=== PATIENT | male | born 1935 | race Caucasian/White ===

== ENCOUNTER 2018-02-09 16:15 | Inpatient (IN) | payer MEDICARE ==
[2018-02-09 16:29] LABS: INTERNATIONAL RATION (INR) 1.02; PROTHROMBIN TIME 13.9 SEC (11.4-15.4)
[2018-02-09 16:30] LABS: PARTIAL THROMBOPLASTIN TIME 30.8 SEC (23.5-35.8)
[2018-02-09 16:32] LABS: ABSOLUTE BASOPHILS # (AUTO) 0.1 10^3/uL (0.0-0.2); ABSOLUTE EOSINOPHILS # (AUTO) 0.3 10^3/uL (0.0-0.6); ABSOLUTE LYMPHOCYTES (AUTO) 2.6 10^3/uL (0.5-4.7); ABSOLUTE MONOCYTES (AUTO) 0.7 10^3/uL (0.1-1.4); ABSOLUTE NEUT (AUTO) 3.1 10^3/uL (1.7-8.2); BASOPHILS % (AUTO) 0.9 % (0-2); HEMATOCRIT 39.4 % (37.9-51.0); HEMOGLOBIN 13.2 g/dL (13.5-17.0); LYMPHOCYTES % (AUTO) 37.9 % (13-45); MEAN CORPUSCULAR HEMOGLOBIN 31.9 pg (27.0-33.4); MEAN CORPUSCULAR HGB CONC 33.5 g/dL (32.0-36.0); MEAN CORPUSCULAR VOLUME 95 fl (80-97); MONOCYTES % (AUTO) 11.1 % (3-13); PLATELET COUNT 233 10^3/uL (150-450); RED BLOOD COUNT 4.14 10^6/uL (4.35-5.55); RED CELL DISTRIBUTION WIDTH 14.5 % (11.5-14.0); SEGMENTED NEUTROPHILS % (AUTO) 46.1 % (42-78); TOTAL CELLS COUNTED % (AUTO) 100 %; WHITE BLOOD COUNT 6.7 10^3/uL (4.0-10.5)
--- NOTE | 2018-02-09 16:40 | RADIOLOGY REPORT (SQ) ---
EXAM DESCRIPTION: CHEST SINGLE VIEW COMPLETED DATE/TIME: 02/09/2018 4:25 pm REASON FOR STUDY: bed 19 stroke alert COMPARISON: None. EXAM PARAMETERS: NUMBER OF VIEWS: One view. TECHNIQUE: Single frontal radiographic view of the chest acquired. RADIATION DOSE: NA LIMITATIONS: None. FINDINGS: LUNGS AND PLEURA: No opacities, masses or pneumothorax. No pleural effusion. MEDIASTINUM AND HILAR STRUCTURES: No masses. Contour normal. HEART AND VASCULAR STRUCTURES: Heart normal in size. Normal vasculature. BONES: No acute findings. HARDWARE: None in the chest. OTHER: No other significant finding. IMPRESSION: NO ACUTE RADIOGRAPHIC FINDING IN THE CHEST. TECHNICAL DOCUMENTATION: JOB ID: [id number] [employer]- All Rights Reserved Reading location - IP/workstation name: [email or web address]
--- NOTE | 2018-02-09 16:41 | RADIOLOGY REPORT (SQ) ---
EXAM DESCRIPTION: CT HEAD WITHOUT COMPLETED DATE/TIME: 02/09/2018 4:25 pm REASON FOR STUDY: bed 19 stroke alert COMPARISON: None. TECHNIQUE: Axial images acquired through the brain without intravenous contrast. Images reviewed wi th bone, brain and subdural windows. Additional sagittal and coronal reconstructions were generated. Images stored on PACS. All CT scanners at this facility use dose modulation, iterative reconstruction, and/or weight based d osing when appropriate to reduce radiation dose to as low as reasonably achievable (ALARA). [facility]: Dose Right [facility]: CareDose [facility]: Dose Right [facility]: Teradose 4D [facility]: [employer] RADIATION DOSE: mGy. LIMITATIONS: None. FINDINGS: VENTRICLES: Prominent. CEREBRUM: No masses. No hemorrhage. No midline shift. Areas of low density in the white matter mos t likely due to chronic micro-vascular ischemic change. No evidence for acute infarction. CEREBELLUM: No masses. No hemorrhage. No alteration of density. No evidence for acute infarction. EXTRAAXIAL SPACES: Age-related involutional change. No fluid collections. No masses. ORBITS AND GLOBE: No intra- or extraconal masses. Normal contour of globe without masses. CALVARIUM: No fracture. PARANASAL SINUSES: No fluid or mucosal thickening. SOFT TISSUES: No mass or hematoma. OTHER: No other significant finding. IMPRESSION: CHRONIC CHANGES OF ATROPHY AND MICROVASCULAR ISCHEMIA. NO ACUTE PROCESS. EVIDENCE OF ACUTE STROKE: NO. COMMENT: Pertinent positive or negative findings of the imaging study reported as a CRITICAL EXAM t o ER PROVIDER at16:35 on 02/09/2018. Category of Critical Exam: Stroke protocol. TECHNICAL DOCUMENTATION: JOB ID: [id number] Quality ID # [id number]: Final reports with documentation of one or more dose reduction techniques (e.g., Au tomated exposure control, adjustment of the mA and/or kV according to patient size, use of iterative reconstruction technique) 2010 [employer]- All Rights Reserved Reading location - IP/workstation name: [email or web address]
[2018-02-09 16:48] LABS: ALANINE AMINOTRANSFERASE 20 U/L (21-72); ALBUMIN 4.4 g/dL (3.5-5.0); ALKALINE PHOSPHATASE 87 U/L (38-126); ANION GAP 10 (5-19); ASPARTATE AMINO TRANSFERASE 43 U/L (17-59); BILIRUBIN,DIRECT 0.6 mg/dL (0.0-0.4); BILIRUBIN,TOTAL 0.8 mg/dL (0.2-1.3); BLOOD UREA NITROGEN 27 mg/dL (7-20); CALCIUM 9.9 mg/dL (8.4-10.2); CARBON DIOXIDE 25 mmol/L (22-30); CHLORIDE 111 mmol/L (98-107); CREATINE KINASE 162 U/L (55-170); GLUCOSE 122 mg/dL (75-110); SODIUM 145.5 mmol/L (137-145); TOTAL PROTEIN 7.8 g/dL (6.3-8.2)
--- NOTE | 2018-02-09 16:54 | ER Document Report ---
ED Neuro Symptoms/Deficit - General Chief Complaint: S/S of Possible Stroke Stated Complaint: POSSIBLE STROKE Time Seen by Provider: 02/09/18 16:29 Mode of Arrival: Stretcher Information source: Relative Cannot obtain history due to: Dementia Notes: Patient son called 911 because at 3:00 he noticed the right facial droop. However on arrival to the ED via EMS, the facial droop has resolved according to the son. Patient is currently at his baseline. Patient's son and his said that patient is currently at his baseline. Patient has history of dementia which is advanced and he does not communicate. Patient is nonverbal and does not follow commands. - HPI Patient complains to provider of: Facial Droop Onset: Just prior to arrival Awoke with symptoms: No Duration: Gone now Quality of pain: No pain Severity: None Loss of consciousness: No loss of consciousness Was STROKE ALERT Called: Yes Baseline Cognitive: Alert but disoriented Baseline Gait: Unable to walk Alert To: Name/Voice Impaired speech/swallowing: Unable Vision problem/glaucoma: No Associated symptoms: None Recently seen / treated by doctor: No - Related Data Allergies/Adverse Reactions: carbamazepine [From Tegretol] Allergy (Verified 02/09/18 18:27) hydromorphone [From Dilaudid] Allergy (Verified 02/09/18 18:27) phenytoin [From Dilantin] Allergy (Verified 02/09/18 18:27) Past Medical History - Social History Smoking Status: Unknown if Ever Smoked Family History: Hypertension Review of Systems - Review of Systems -: Yes ROS unobtainable due to patient's medical condition - Patient is non verbal and does not follow commands. Physical Exam - Vital signs Vitals: Pulse Resp BP Pulse Ox 78 20 130/84 H 97 02/09/18 16:20 02/09/18 16:20 02/09/18 16:20 02/09/18 16:20 Interpretation: Normal - General General appearance: Appears well, Alert In distress: None - HEENT Head: Normocephalic, Atraumatic Eyes: Normal Pupils: PERRL - Respiratory Respiratory status: No respiratory distress Chest status: Nontender Breath sounds: Normal Chest palpation: Normal - Cardiovascular Rhythm: Regular Heart sounds: Normal auscultation Murmur: No - Abdominal Inspection: Normal Distension: No distension Bowel sounds: Normal Tenderness: Nontender Organomegaly: No organomegaly - Back Back: Normal, Nontender - Extremities General upper extremity: Normal inspection, Nontender, Normal color, Normal ROM , Normal temperature General lower extremity: Normal inspection, Nontender, Normal color, Normal ROM , Normal temperature, Normal weight bearing. No: Mechelle's sign - Neurological Neuro grossly intact: Yes Cognition: Inattentive Orientation: Disoriented to events [place] Coma Scale Eye Opening: Spontaneous [place] Coma Scale Verbal: None Cecilia Coma Scale Motor: Localizes to Pain Cecilia Coma Scale Total: 10 Motor strength normal: LUE, RUE, LLE, RLE Notes: Unable to obtain the NIHSS because patient is nonverbal and does not follow commands. Patient's and son said that he is at his baseline currently. - Psychological Associated symptoms: Normal mood, Flat affect - Skin Skin Temperature: Warm Skin Moisture: Dry Skin Color: Normal Skin Turgor: Loose Course - Re-evaluation Re-evalutation: 02/09/18 18:24 I consulted the hospitalist on-call Dr. Reynolds. Patient will be admitted to the hospital by Dr. Garcia for further evaluation and management. - Vital Signs Vital signs: Temp Pulse Resp BP Pulse Ox 78 20 121/78 99 02/09/18 16:20 02/09/18 20:00 02/09/18 17:02 02/09/18 20:36 - Laboratory Result Diagrams: 02/09/18 15:45 02/09/18 15:45 Laboratory results interpreted by me: 02/09/18 02/09/18 15:45 15:45 RBC 4.14 L Hgb 13.2 L RDW 14.5 H Sodium 145.5 H Chloride 111 H BUN 27 H Creatinine 1.54 H Est GFR ( Amer) 52 L Est GFR (Non-Af Amer) 43 L Glucose 122 H Direct Bilirubin 0.6 H ALT 20 L - Diagnostic Test Radiology reviewed: Image reviewed, Reports reviewed - EKG Interpretation by Me EKG shows normal: Sinus rhythm Rate: Normal - 66 Rhythm: NSR Ventress/QRS: LAHB/LAFB When compared to previous EKG there are: Previous EKG unavailable Additional EKG results interpreted by me: 02/09/18 18:19 No STEMI. - Transfer of Care Notes: 02/09/18 18:28 Transient ischemic attack. Discharge - Discharge Clinical Impression: TIA (transient ischemic attack) Condition: Stable Disposition: ADMITTED INPATIENT Admitting Provider: Grey Ortega Unit Admitted: [facility]
[2018-02-09 17:02] LABS: CREATINE KINASE MB 2.35 ng/mL (<4.55)
[2018-02-09 17:04] LABS: TROPONIN I < 0.012 ng/mL
[2018-02-09] MEDS ORDERED: DEXTROSE 5%-1/2 NORMAL SALINE 1,000 ML IV PRN (18:19)
--- NOTE | 2018-02-09 18:54 | PDOC H&P ---
History of Present Illness Admission Date/PCP: 02/09/18 17:38 PIETRO MAYNARD MD Patient complains of: Left facial droop History of Present Illness: KEN SHARIF is a 82 year old maleWith advanced dementia nonverbal. Lives with his . Children witnessed patient have a left facial droop which resolved by the time he reached the emergency room. The patient is unable to provide any history. The states that he currently in his bedridden state is at his baseline although he is does tend to lay with his tongue to the left. It is unclear whether he actually had a neurologic event at this time. indicates that for the past week he has had periods where sitting in the chair he has tonic-clonic activity of both upper and lower extremities because he is chronically incontinent it is unclear whether these are true seizures. She is a poor historian and he is unable to give any history at all. Past Medical History Cardiac Medical History: Reports: Hyperlipidema, Hypertension Neurological Medical History: Reports: Other - Advanced dementia Endocrine Medical History: Reports: Hypothyroidism Past Surgical History Past Surgical History: Reports: Orthopedic Surgery Social History Smoking Status: Never Smoker Drugs: None Hx Prescription Drug Abuse: No Family History Parental Family History Reviewed: Yes - Patient unable to answer Children Family History Reviewed: Unknown Sibling(s) Family History Reviewed.: Unknown Medication/Allergy Allergies/Adverse Reactions: carbamazepine [From Tegretol] Allergy (Verified 02/09/18 18:27) hydromorphone [From Dilaudid] Allergy (Verified 02/09/18 18:27) phenytoin [From Dilantin] Allergy (Verified 02/09/18 18:27) Review of Systems ROS unobtainable: Due to mental status Physical Exam Vital Signs: Temp Pulse Resp BP Pulse Ox 78 19 121/78 98 02/09/18 16:20 02/09/18 17:02 02/09/18 17:02 02/09/18 17:02 General appearance: PRESENT: no acute distress, thin, well-developed Eye exam: PRESENT: conjunctiva pink, EOMI, PERRLA Neck exam: PRESENT: carotid bruit, full ROM, JVD, lymphadenopathy, meningismus, tenderness, thyromegaly, tracheal deviation, tracheostomy, other Respiratory exam: PRESENT: clear to auscultation osmar. ABSENT: rales, rhonchi, wheezes Cardiovascular exam: PRESENT: RRR. ABSENT: diastolic murmur, rubs, systolic murmur GI/Abdominal exam: PRESENT: normal bowel sounds, soft. ABSENT: distended, guarding, mass, organolmegaly, rebound, tenderness Musculoskeletal exam: ABSENT: ambulatory, full ROM Neurological exam: PRESENT: awake, CN II-XII grossly intact, aphasic. ABSENT: oriented to person, oriented to place, oriented to time, oriented to situation Psychiatric exam: PRESENT: other - Advanced dementia Skin exam: PRESENT: dry, intact, warm. ABSENT: cyanosis, rash Results Impressions: Chest X-Ray 02/09/18 16:19 IMPRESSION: NO ACUTE RADIOGRAPHIC FINDING IN THE CHEST. Head CT 02/09/18 16:19 IMPRESSION: CHRONIC CHANGES OF ATROPHY AND MICROVASCULAR ISCHEMIA. NO ACUTE PROCESS. EVIDENCE OF ACUTE STROKE: NO. Assessment & Plan - Diagnosis (1) TIA (transient ischemic attack) Is this a current diagnosis for this admission?: Yes Plan: Admit to the medical bed will not place telemetry as patient will only pick at it as he is doing in the emergency room. His advanced dementia and CT that confirms microvascular disease most likely patient had a TIA due to small vessel disease. Will initiate aspirin therapy. Obtain carotid Doppler echocardiogram. Discussed with CODE STATUS patient is a full code at present she will discuss with her children his CODE STATUS in light of his advanced dementia. (2) Seizure disorder Is this a current diagnosis for this admission?: Yes Plan: states that he has no history of seizure disorder yet Dilantin is listed as a allergy. Her description of bilateral convulsive activity while sitting in a chair that lasts approximately a minute certainly is consistent with seizure disorder. Will obtain MRI (3) Hypothyroid Is this a current diagnosis for this admission?: Yes Plan: Resume levothyroxine 1 dose confirmed (4) Hypertension Is this a current diagnosis for this admission?: Yes Plan: Resume outpatient meds when med rec confirmed - Time Time Spent: 50 to 70 Minutes Anticipated discharge: Home Within: within 48 hours - Inpatient Certification Based on my medical assessment, after consideration of the patient's comorbidities, presenting symptoms, or acuity I expect that the services needed warrant INPATIENT care.: Yes I certify that my determination is in accordance with my understanding of Medicare's requirements for reasonable and necessary INPATIENT services [42 CFR 412.3e].: Yes Medical Necessity: Need for Neurological Checks Post Hospital Care: D/C School Operations Manager Documentation
[2018-02-10 05:35] LABS: ALANINE AMINOTRANSFERASE 26 U/L (21-72); ALBUMIN 3.5 g/dL (3.5-5.0); ALKALINE PHOSPHATASE 86 U/L (38-126); ANION GAP 5 (5-19); ASPARTATE AMINO TRANSFERASE 22 U/L (17-59); BILIRUBIN,DIRECT 0.4 mg/dL (0.0-0.4); BILIRUBIN,TOTAL 0.8 mg/dL (0.2-1.3); BLOOD UREA NITROGEN 24 mg/dL (7-20); CALCIUM 9.4 mg/dL (8.4-10.2); CARBON DIOXIDE 27 mmol/L (22-30); CHLORIDE 114 mmol/L (98-107); CHOLESTEROL 124.44 mg/dL (0-200); GLUCOSE 100 mg/dL (75-110); SODIUM 146.1 mmol/L (137-145); TOTAL PROTEIN 6.3 g/dL (6.3-8.2); TRIGLYCERIDES 66 mg/dL (<150)
[2018-02-10 05:47] LABS: DIRECT LDL 60 mg/dL (<100)
[2018-02-10] MEDS ORDERED: GLUCAGON,HUMAN RECOMB 1 MG INJ SUBCUT PRN (07:46)
[2018-02-10] MEDS ORDERED: DEXTROSE 50%-WATER 25 GM/50 ML DISP.SYRIN IV PRN ×2 (07:46)
[2018-02-10] MEDS ORDERED: DEXTROSE 40% GEL 15 GM TUBE PO PRN ×2 (07:46)
--- NOTE | 2018-02-10 11:02 | PDOC PROGRESS REPORT ---
Subjective Progress Note for:: 02/10/18 Subjective:: 82-year-old white male with severe advanced dementia brought in by family members due to demonstrating a Right facial droop and unresponsive behavior. Family thought he had a stroke but his symptoms resolved by the time he arrived at the hospital. On talking with the patient has had these episodes of tonic-clonic activity while sitting in a chair and laying in bed. As he is demented his always incontinent he has not exhibited any tongue biting. This morning patient is More interactive although clearly demented.He was initiated on aspirin for TIA therapy as CT showed microvascular disease and extensive atrophy. Reason For Visit: TIA Physical Exam Vital Signs: Temp Pulse Resp BP Pulse Ox 98.6 F 57 L 18 118/71 99 02/10/18 07:23 02/10/18 07:23 02/10/18 07:23 02/10/18 07:23 02/10/18 07:23 Intake & Output 02/09/18 02/10/18 02/11/18 06:59 06:59 06:59 Weight 75.9 kg General appearance: PRESENT: no acute distress Eye exam: PRESENT: conjunctiva pink, EOMI, PERRLA Neck exam: ABSENT: carotid bruit, JVD, lymphadenopathy, thyromegaly Respiratory exam: PRESENT: clear to auscultation osmar. ABSENT: rales, rhonchi, wheezes Cardiovascular exam: PRESENT: RRR. ABSENT: diastolic murmur, rubs, systolic murmur Pulses: PRESENT: normal dorsalis pedis pul GI/Abdominal exam: PRESENT: normal bowel sounds, soft. ABSENT: distended, guarding, mass, organolmegaly, rebound, tenderness Musculoskeletal exam: PRESENT: normal inspection. ABSENT: tenderness Neurological exam: PRESENT: awake, CN II-XII grossly intact, other - Demented does answer yes unable to ascertain if he is comprehending. ABSENT: motor sensory deficit Results Laboratory Results: 02/10/18 04:53 02/10/18 04:53 Sodium 146.1 H Potassium 4.0 Chloride 114 H Carbon Dioxide 27 Anion Gap 5 BUN 24 H Creatinine 1.40 H Est GFR ( Amer) 59 L Est GFR (Non-Af Amer) 48 L Glucose 100 Calcium 9.4 Total Bilirubin 0.8 AST 22 ALT 26 Alkaline Phosphatase 86 Total Protein 6.3 Albumin 3.5 Triglycerides 66 Cholesterol 124.44 LDL Cholesterol Direct 60 VLDL Cholesterol 13.0 HDL Cholesterol 46 Impressions: Chest X-Ray 02/09/18 16:19 IMPRESSION: NO ACUTE RADIOGRAPHIC FINDING IN THE CHEST. Head CT 02/09/18 16:19 IMPRESSION: CHRONIC CHANGES OF ATROPHY AND MICROVASCULAR ISCHEMIA. NO ACUTE PROCESS. EVIDENCE OF ACUTE STROKE: NO. Assessment & Plan - Diagnosis (1) TIA (transient ischemic attack) Is this a current diagnosis for this admission?: Yes Plan: No family members present but it appears patient is back to his baseline. He is on 162 mg of aspirin which he was not on regular aspirin at home. I suspect if workup negative then aspirin therapy will be all that should be offered at this point. (2) Seizure disorder Is this a current diagnosis for this admission?: Yes Plan: states that he has no history of seizure disorder yet Dilantin is listed as a allergy. Her description of bilateral convulsive activity while sitting in a chair that lasts approximately a minute certainly is consistent with seizure disorder. Will obtain MRI. EEG has been ordered and is being done this morning. If patient has any episodes that are witnessed in hospital would recommend initiating Keppra (3) Hypothyroid Is this a current diagnosis for this admission?: Yes Plan: Resume levothyroxine 112 mg daily check TSH (4) Hypertension Is this a current diagnosis for this admission?: Yes Plan: Continue outpatient medications unchanged. - Time Time Spent with patient: 25-34 minutes
[2018-02-10] MEDS: ASPIRIN 81 MG TABLET, ENT COATED PO SCH (11:58)
[2018-02-10] MEDS: ENOXAPARIN SODIUM INJ 30 MG/0.3 ML DISP.SYRIN SUBCUT SCH (12:00)
--- NOTE | 2018-02-10 13:25 | RADIOLOGY REPORT (SQ) ---
EXAM DESCRIPTION: CAROTID DOPPLER COMPLETED DATE/TIME: 02/10/2018 1:11 pm REASON FOR STUDY: TIA E03.9 HYPOTHYROIDISM, UNSPECIFIED COMPARISON: None. TECHNIQUE: Grayscale ultrasound, Doppler velocity and spectra, and color Doppler images acquired of the extra-cranial carotid and vertebral arteries. Images stored on PACS. LIMITATIONS: None. FINDINGS: RIGHT CAROTID CCA Velocities: Within normal limits. ICA Velocities Peak systolic 0.74 m/s. End diastolic 0.26 m/s. Proximal ICA/CCA peak systolic ratio 1.7. Spectra normal. No significant plaque. LEFT CAROTID CCA Velocities: Within normal limits. ICA Velocities Peak systolic 0.7 m/s. End diastolic 0.22 m/s. Proximal ICA/CCA peak systolic ratio 1.0. Spectra normal. No significant plaque. VERTEBRAL ARTERIES: Antegrade flow. Normal waveforms. SUBCLAVIAN ARTERIES: No finding. OTHER: No other significant finding. IMPRESSION: NO HEMODYNAMICALLY SIGNIFICANT STENOSIS. COMMENT: Quality ID #[id number]: Velocity criteria are extrapolated from the diameter data as defined by t he Society of Radiologists in Ultrasound Consensus Conference. Radiology 2003: 229; 340-346. TECHNICAL DOCUMENTATION: JOB ID: [id number] [employer]- All Rights Reserved Reading location - IP/workstation name: [email or web address]
--- NOTE | 2018-02-10 15:30 | EKG REPORT ---
SEVERITY:- ABNORMAL ECG - SINUS RHYTHM LEFT ANTERIOR FASCICULAR BLOCK PROBABLE LEFT VENTRICULAR HYPERTROPHY CONSIDER ANTERIOR INFARCT : Confirmed by: Britt Torres MD 10-Feb-2018 15:29:28
[2018-02-10] MEDS ORDERED: LORAZEPAM INJ 2 MG/1 ML VIAL IV ONE (16:30)
[2018-02-10 17:36] LABS: AMORPHOUS SEDIMENT,URINE TRACE /HPF; APPEARANCE,URINE CLOUDY; BILIRUBIN,URINE NEGATIVE (NEGATIVE); COLOR,URINE YELLOW; GLUCOSE, URINE NEGATIVE (NEGATIVE); KETONES,URINE NEGATIVE (NEGATIVE); LEUKOCYTE ESTERASE,URINE LARGE (NEGATIVE); NITRITE,URINE NEGATIVE (NEGATIVE); PROTEIN,URINE NEGATIVE (NEGATIVE); URINE SPECIFIC GRAVITY 1.013; UROBILINOGEN,URINE NEGATIVE mg/dL (<2.0)
--- NOTE | 2018-02-10 19:35 | XCELERA REPORT ---
[address] [address] Transthoracic Echocardiogram Report Name: KEN SHARIF Age: 82 yrs Gender: Male : 1935 Patient Status: Inpatient Patient Location: [address] [place], [place] [address] Study Date: 02/10/2018 10:33 AM Procedure: A two-dimensional transthoracic echocardiogram with color flow Doppler was performed. The study was technically difficult with many images being suboptimal in quality. Study Quality: Technically suboptimal. Reason For Study: TIA History: TIA. Ordering Physician: JUAN DASILVA Performed By: Vesna Costa Interpretation Summary There is no obvious cardiac source of embolus noted on this transthoracic echocardiogram. Follow-up with a LAUREN is suggested if cardiac source is still suspected. The left ventricle is normal in size. There is normal left ventricular wall thickness. LV EF is 60% Left ventricular systolic function is normal. Doppler measurements suggest impaired left ventricular relaxation, which is associated with grade I/IV or mild diastolic dysfunction The left ventricular wall motion is normal. The right ventricle is not well visualized secondary to technical limitations The left atrial size is normal. There is no evidence of mitral valve prolapse. There is no vegetation seen on the mitral valve. There is no mitral valve stenosis. There is a trace amount of mitral regurgitation There is no aortic valvular vegetation. There is no aortic valve stenosis There is no LVOT obstruction. No aortic regurgitation is present. There is no tricuspid stenosis. There is a trace to mild amount of tricuspid regurgitation There is mild pulmonary hypertension by echo RVSP is 35 to 40 mm of Hg , with RA mean of 5 to 10. There is no pulmonic valvular stenosis. There is a trace amount of pulmonic regurgitation There is no pericardial effusion. There is no obvious cardiac source of embolus noted on this transthoracic echocardiogram. Follow-up with a LAUREN is suggested if cardiac source is still suspected MMode/2D Measurements & Calculations RVDd: 4.1 cm LVIDd: 4.9 cm FS: 39.9 % Ao root diam: 2.8 cm IVSd: 0.90 cm LVIDs: 2.9 cm EDV(Teich): 111.0 ml Ao root area: 6.2 cm2 LVPWd: 0.92 cm ESV(Teich): 32.8 ml EF(Teich): 70.4 % LA dimension: 3.3 cm Doppler Measurements & Calculations MV E max matthew: MV P1/2t max matthew: Ao V2 max: LV V1 max P.4 cm/sec 50.3 cm/sec 116.4 cm/sec 2.1 mmHg MV A max matthew: MV P1/2t: 79.7 msec Ao max P.4 mmHg LV V1 max: 61.7 cm/sec 73.1 cm/sec MV E/A: 0.80 MVA(P1/2t): 2.8 cm2 MV dec slope: 185.0 cm/sec2 MV dec time: 0.26 sec PA V2 max: TR max matthew: MV P1/2t-pr_phl: 81.9 cm/sec 274.2 cm/sec 79.7 msec PA max PG: TR max P.1 mmHg 2.7 mmHg Left Ventricle The left ventricle is normal in size. There is normal left ventricular wall thickness. LV EF is 60%. Left ventricular systolic function is normal. Doppler measurements suggest impaired left ventricular relaxation, which is associated with grade I/IV or mild diastolic dysfunction. The left ventricular wall motion is normal. There is no thrombus. Right Ventricle The right ventricle is not well visualized secondary to technical limitations. Atria Right atrium not well visualized secondary to technical limitations. The left atrial size is normal. Mitral Valve There is no evidence of mitral valve prolapse. There is no vegetation seen on the mitral valve. There is no mitral valve stenosis. There is a trace amount of mitral regurgitation. Aortic Valve There is no aortic valvular vegetation. There is no aortic valve stenosis. There is no LVOT obstruction. No aortic regurgitation is present. Tricuspid Valve There is no tricuspid stenosis. There is a trace to mild amount of tricuspid regurgitation. There is mild pulmonary hypertension by echo. RVSP is 35 to 40 mm of Hg , with RA mean of 5 to 10. Pulmonic Valve There is no pulmonic valvular stenosis. There is a trace amount of pulmonic regurgitation. Great Vessels The aortic root is not well visualized. Effusions There is no pericardial effusion. : JUAN DASILVA > Britt Torres
[2018-02-10] MEDS ORDERED: (PENDING PHARMACY ID) (Lovastatin [Altoprev] 40 MG) PO SCH (22:00)
[2018-02-10] MEDS: ATORVASTATIN CALCIUM 10 MG TABLET PO SCH (22:46)
[2018-02-10] MEDS: TRAZODONE HCL 50 MG TABLET PO SCH (22:46)
[2018-02-10] MEDS: DEXTROSE 5%-1/2 NORMAL SALINE 1,000 ML IV PRN (22:50)
[2018-02-11 04:49] LABS: ABSOLUTE BASOPHILS # (AUTO) 0.1 10^3/uL (0.0-0.2); ABSOLUTE EOSINOPHILS # (AUTO) 0.4 10^3/uL (0.0-0.6); ABSOLUTE LYMPHOCYTES (AUTO) 2.2 10^3/uL (0.5-4.7); ABSOLUTE MONOCYTES (AUTO) 0.7 10^3/uL (0.1-1.4); ABSOLUTE NEUT (AUTO) 2.2 10^3/uL (1.7-8.2); BASOPHILS % (AUTO) 1.2 % (0-2); EOSINOPHILS % (AUTO) 6.8 % (0-6); HEMATOCRIT 33.7 % (37.9-51.0); HEMOGLOBIN 11.7 g/dL (13.5-17.0); LYMPHOCYTES % (AUTO) 40.2 % (13-45); MEAN CORPUSCULAR HEMOGLOBIN 32.8 pg (27.0-33.4); MEAN CORPUSCULAR HGB CONC 34.6 g/dL (32.0-36.0); MEAN CORPUSCULAR VOLUME 95 fl (80-97); MONOCYTES % (AUTO) 12.1 % (3-13); PLATELET COUNT 195 10^3/uL (150-450); RED BLOOD COUNT 3.56 10^6/uL (4.35-5.55); RED CELL DISTRIBUTION WIDTH 14.4 % (11.5-14.0); SEGMENTED NEUTROPHILS % (AUTO) 39.7 % (42-78); TOTAL CELLS COUNTED % (AUTO) 100 %; WHITE BLOOD COUNT 5.4 10^3/uL (4.0-10.5)
[2018-02-11 05:12] LABS: ANION GAP 5 (5-19); BLOOD UREA NITROGEN 19 mg/dL (7-20); CALCIUM 9.1 mg/dL (8.4-10.2); CARBON DIOXIDE 26 mmol/L (22-30); CHLORIDE 111 mmol/L (98-107); GLUCOSE 112 mg/dL (75-110); PHOSPHORUS 3.3 mg/dL (2.5-4.5); POTASSIUM 3.8 mmol/L (3.6-5.0); SODIUM 141.9 mmol/L (137-145)
--- NOTE | 2018-02-11 08:17 | EEG PRO FEE REPORT ---
EEG INTERPRETATION PATIENT NAME: KEN SHARIF ROOM#: [id number] ORDER#: [id number] DATE OF STUDY: 02/10/2018 : 1935 REFERRING MD: AAKASH DASILVA DO MEDICATIONS: Aspirin, Dextrose, Lovenox History This is an 82 year old right handed man with a history of hypothyroidism, dementia, hypertension, and gout admitted for a TIA. This EEG was requested for seizure like activity. EEG Interpretation This EEG was recorded in the awake, drowsy, and sleep states. The awake EEG is characterized by a disorganized background without a posterior dominant rhythm or noted reactivity to eye opening or closing. The remainder of the background consisted of a mix of theta and delta activity. There were no easily discernable state changes. Photic stimulation resulted in no significant changes. There was significant artifact impairing interpretation. There were no epileptiform abnormalities noted. The EKG showed a regular rhythm. EEG Classification 1. Generalized background slowing 2. Disorganization EEG Impression This EEG is abnormal. It is consistent with diffuse cerebral dysfunction. Artifact impaired interpretation. INTERPRETING PHYSICIAN: SHARRI RIOS M.D. /: MTLANA TT: [id number] ID: [id number] /: [id number] TD: 1602 JOB: [id number] cc:Alex CLAY M.D. PHILLIP CASEY, DO > MTDD
--- NOTE | 2018-02-11 08:35 | PDOC PROGRESS REPORT ---
Subjective Progress Note for:: 02/11/18 Subjective:: The patient appears to be the same. He appears to be stable. There are no further seizure activity. There are no further TIA symptoms. The daughter is at the bedside. Reason For Visit: TIA Physical Exam Vital Signs: Temp Pulse Resp BP Pulse Ox 98.2 F 56 L 22 H 108/82 96 02/11/18 03:34 02/11/18 04:00 02/11/18 04:00 02/11/18 04:00 02/11/18 04:00 Intake & Output 02/10/18 02/11/18 02/12/18 06:59 06:59 06:59 Intake Total 827 Balance 827 Weight 75.9 kg 77.4 kg General appearance: PRESENT: mild distress Head exam: PRESENT: atraumatic Eye exam: PRESENT: conjunctiva pink Mouth exam: PRESENT: dry mucosa Neck exam: ABSENT: carotid bruit, JVD Respiratory exam: PRESENT: clear to auscultation osmar Cardiovascular exam: PRESENT: RRR, +S1, +S2 GI/Abdominal exam: PRESENT: normal bowel sounds, soft Extremities exam: PRESENT: tenderness Musculoskeletal exam: PRESENT: tenderness Neurological exam: PRESENT: awake, abnormal gait, aphasic Psychiatric exam: PRESENT: flat affect Results Laboratory Results: 02/11/18 04:16 02/11/18 04:16 02/10/18 02/11/18 02/11/18 17:05 04:16 04:16 WBC 5.4 RBC 3.56 L Hgb 11.7 L Hct 33.7 L MCV 95 MCH 32.8 MCHC 34.6 RDW 14.4 H Plt Count 195 Seg Neutrophils % 39.7 L Lymphocytes % 40.2 Monocytes % 12.1 Eosinophils % 6.8 H Basophils % 1.2 Absolute Neutrophils 2.2 Absolute Lymphocytes 2.2 Absolute Monocytes 0.7 Absolute Eosinophils 0.4 Absolute Basophils 0.1 Sodium 141.9 Potassium 3.8 Chloride 111 H Carbon Dioxide 26 Anion Gap 5 BUN 19 Creatinine 1.28 H Est GFR ( Amer) > 60 Est GFR (Non-Af Amer) 54 L Glucose 112 H Calcium 9.1 Phosphorus 3.3 Urine Color YELLOW Urine Appearance CLOUDY Urine pH 7.0 Ur Specific [place] 1.013 Urine Protein NEGATIVE Urine Glucose (UA) NEGATIVE Urine Ketones NEGATIVE Urine Blood SMALL H Urine Nitrite NEGATIVE Ur Leukocyte Esterase LARGE H Urine WBC (Auto) 8 Urine RBC (Auto) 5 Impressions: Chest X-Ray 02/09/18 16:19 IMPRESSION: NO ACUTE RADIOGRAPHIC FINDING IN THE CHEST. Head CT 02/09/18 16:19 IMPRESSION: CHRONIC CHANGES OF ATROPHY AND MICROVASCULAR ISCHEMIA. NO ACUTE PROCESS. EVIDENCE OF ACUTE STROKE: NO. Carotid Doppler Study 02/10/18 00:00 IMPRESSION: NO HEMODYNAMICALLY SIGNIFICANT STENOSIS. Assessment & Plan - Diagnosis (1) Dementia Qualifiers: Dementia type: Alzheimer's disease Is this a current diagnosis for this admission?: Yes Plan: We will continue with current medications (2) Hypertension Is this a current diagnosis for this admission?: Yes Plan: Adjust blood pressure medication at diet (3) Hypothyroid Is this a current diagnosis for this admission?: Yes Plan: Continue current medications (4) Seizure disorder Is this a current diagnosis for this admission?: Yes Plan: We will add Keppra (5) TIA (transient ischemic attack) Is this a current diagnosis for this admission?: Yes Plan: CT negative carotid Doppler negative echo negative will continue with current treatment (6) DNR (do not resuscitate) Is this a current diagnosis for this admission?: Yes
[2018-02-11] MEDS: DEXTROSE 5%-1/2 NORMAL SALINE 1,000 ML IV PRN ×2 (08:47→18:33)
[2018-02-11] MEDS ORDERED: LEVOTHYROXINE SODIUM 0.112 MG TABLET PO SCH (10:00)
[2018-02-11] MEDS: ENOXAPARIN SODIUM INJ 30 MG/0.3 ML DISP.SYRIN SUBCUT SCH (10:41)
[2018-02-11] MEDS: ALLOPURINOL 300 MG TABLET PO SCH (10:44)
[2018-02-11] MEDS: ASPIRIN 81 MG TABLET, ENT COATED PO SCH (10:44)
[2018-02-11] MEDS: AMLODIPINE BESYLATE 5 MG TABLET PO SCH (10:44)
[2018-02-11] MEDS: LEVETIRACETAM 500 MG TABLET PO SCH ×2 (10:44→23:14)
[2018-02-11] MEDS: ATORVASTATIN CALCIUM 10 MG TABLET PO SCH (23:17)
[2018-02-11] MEDS: TRAZODONE HCL 50 MG TABLET PO SCH (23:17)
[2018-02-12] MEDS: DEXTROSE 5%-1/2 NORMAL SALINE 1,000 ML IV PRN (05:47)
[2018-02-12] MEDS ORDERED: LEVOTHYROXINE SODIUM 0.112 MG TABLET PO SCH (08:41)
--- NOTE | 2018-02-12 08:46 | PDOC PROGRESS REPORT ---
Subjective Progress Note for:: 02/12/18 Subjective:: The patient is awake. He does not communicate much. Family at the bedside. Discussed the placement. The all in agreement. Reason For Visit: CVA Physical Exam Vital Signs: Temp Pulse Resp BP Pulse Ox 98.2 F 66 20 134/75 H 96 02/12/18 03:12 02/12/18 04:00 02/12/18 04:00 02/12/18 04:00 02/12/18 04:00 Intake & Output 02/11/18 02/12/18 02/13/18 06:59 06:59 06:59 Intake Total 827 4303 Balance 827 4303 Weight 77.4 kg 77.7 kg General appearance: PRESENT: mild distress Head exam: PRESENT: atraumatic Eye exam: PRESENT: conjunctival injection Neck exam: PRESENT: carotid bruit. ABSENT: JVD Respiratory exam: PRESENT: clear to auscultation osmar Cardiovascular exam: PRESENT: RRR, +S1, +S2 GI/Abdominal exam: PRESENT: normal bowel sounds, soft Extremities exam: PRESENT: other Musculoskeletal exam: PRESENT: other Psychiatric exam: PRESENT: flat affect Results Laboratory Results: 02/11/18 04:16 02/11/18 04:16 02/11/18 04:16 TSH 0.10 L Impressions: Chest X-Ray 02/09/18 16:19 IMPRESSION: NO ACUTE RADIOGRAPHIC FINDING IN THE CHEST. Head CT 02/09/18 16:19 IMPRESSION: CHRONIC CHANGES OF ATROPHY AND MICROVASCULAR ISCHEMIA. NO ACUTE PROCESS. EVIDENCE OF ACUTE STROKE: NO. Carotid Doppler Study 02/10/18 00:00 IMPRESSION: NO HEMODYNAMICALLY SIGNIFICANT STENOSIS. Assessment & Plan - Diagnosis (1) Dementia Qualifiers: Dementia type: Alzheimer's disease Is this a current diagnosis for this admission?: Yes Plan: We will continue with current medications (2) Hypertension Is this a current diagnosis for this admission?: Yes Plan: Adjust blood pressure medication at diet (3) Hypothyroid Is this a current diagnosis for this admission?: Yes Plan: Decrease levothyroxine (4) Seizure disorder Is this a current diagnosis for this admission?: Yes Plan: We will add Keppra (5) TIA (transient ischemic attack) Is this a current diagnosis for this admission?: Yes Plan: CT negative carotid Doppler negative echo negative will continue with current treatment (6) DNR (do not resuscitate) Is this a current diagnosis for this admission?: Yes Plan: Continue DNR
[2018-02-12] MEDS: LEVETIRACETAM 500 MG TABLET PO SCH ×2 (10:06→22:03)
[2018-02-12] MEDS: ALLOPURINOL 300 MG TABLET PO SCH (10:07)
[2018-02-12] MEDS: AMLODIPINE BESYLATE 5 MG TABLET PO SCH (10:07)
[2018-02-12] MEDS: ASPIRIN 81 MG TABLET, ENT COATED PO SCH (10:07)
[2018-02-12] MEDS: ENOXAPARIN SODIUM INJ 30 MG/0.3 ML DISP.SYRIN SUBCUT SCH (10:08)
[2018-02-12] MEDS: LEVOTHYROXINE SODIUM 0.1 MG TABLET PO SCH (10:30)
[2018-02-12] MEDS ORDERED: METRONIDAZOLE 500 MG TABLET PO SCH (18:00)
[2018-02-12] MEDS: METRONIDAZOLE 500 MG TABLET PO SCH (18:31)
[2018-02-12] MEDS: ATORVASTATIN CALCIUM 10 MG TABLET PO SCH (22:03)
[2018-02-12] MEDS: TRAZODONE HCL 50 MG TABLET PO SCH (22:03)
[2018-02-13] MEDS: LEVOTHYROXINE SODIUM 0.1 MG TABLET PO SCH (06:23)
[2018-02-13] MEDS: METRONIDAZOLE 500 MG TABLET PO SCH ×4 (06:23→23:05)
--- NOTE | 2018-02-13 09:26 | PDOC TRANSFER SUMMARY ---
General - Admit/Disc Date/PCP Admission Date/Primary Care Provider: 02/09/18 17:38 PIETRO MAYNARD MD Discharge Date: 02/13/18 - Discharge Diagnosis (1) Dementia Is this a current diagnosis for this admission?: Yes Summary: Advanced we will continue with current medication (2) Hypertension Is this a current diagnosis for this admission?: Yes Summary: Stable continue current treatment (3) Hypothyroid Is this a current diagnosis for this admission?: Yes Summary: Stable continue current treatment (4) Seizure disorder Is this a current diagnosis for this admission?: Yes Summary: We will continue with Keppra (5) TIA (transient ischemic attack) Is this a current diagnosis for this admission?: Yes (6) DNR (do not resuscitate) Is this a current diagnosis for this admission?: Yes Summary: Continue DNR status (7) C. difficile colitis Is this a current diagnosis for this admission?: Yes Summary: Continue Flagyl 500 every 810 days - Additional Information Resuscitation Status: Do Not Resuscitate Discharge Diet: As Tolerated Home Medications: Allopurinol [Zyloprim 300 mg Tablet] 300 mg PO DAILY 02/09/18 Amlodipine Besylate [Norvasc 5 mg Tablet] 5 mg PO DAILY 02/09/18 Cetirizine HCl [Allergy] 10 mg PO QHS 02/09/18 Ergocalciferol (Vitamin D2) [Vitamin D2] 50,000 unit PO WE@1000 02/09/18 Lovastatin [Altoprev] 40 mg PO QHS 02/09/18 Trazodone HCl [Desyrel 50 mg Tablet] 50 mg PO QHS 02/09/18 Aspirin [Ecotrin 81 mg EC Tablet] 162 mg PO DAILY tabec 02/13/18 Levetiracetam [Keppra 500 mg Tablet] 1,000 mg PO Q12 tablet 02/13/18 Levothyroxine Sodium [Synthroid 0.1 mg Tablet] 0.1 mg PO Q6AM tablet 02/13/18 Metronidazole [Flagyl 500 mg Tablet] 500 mg PO Q8 tablet 02/13/18 History of Present Illness Admission Date/PCP: 02/09/18 17:38 PIETRO MAYNARD MD History of Present Illness: KEN SHARIF is a 82 year old male Hospital Course Hospital Course: The patient was admitted directly from the emergency room with possibility of a TIA. He did have a witnessed seizure and was started on medication. He did well with the family cannot manage the patient any longer at home and would like a correction placement. While in the hospital the patient has developed C. difficile colitis. He was recently on antibiotics as an outpatient with might be the reason for it Physical Exam Vital Signs: Temp Pulse Resp BP Pulse Ox 97.7 F 61 14 112/56 L 98 02/13/18 07:59 02/13/18 07:59 02/13/18 07:59 02/13/18 07:59 02/13/18 07:59 Intake & Output 02/12/18 02/13/18 02/14/18 06:59 06:59 06:59 Intake Total 4303 1387 Balance 4303 1387 Weight 77.7 kg 76.8 kg General appearance: PRESENT: no acute distress Head exam: PRESENT: atraumatic Eye exam: PRESENT: conjunctival injection Mouth exam: PRESENT: dry mucosa Neck exam: PRESENT: carotid bruit. ABSENT: JVD Respiratory exam: PRESENT: crackles Cardiovascular exam: PRESENT: RRR, +S1, +S2 GI/Abdominal exam: PRESENT: normal bowel sounds, soft Extremities exam: PRESENT: tenderness Musculoskeletal exam: PRESENT: tenderness Neurological exam: PRESENT: awake Psychiatric exam: PRESENT: flat affect Results Laboratory Results: 02/11/18 04:16 02/11/18 04:16 Impressions: Chest X-Ray 02/09/18 16:19 IMPRESSION: NO ACUTE RADIOGRAPHIC FINDING IN THE CHEST. Head CT 02/09/18 16:19 IMPRESSION: CHRONIC CHANGES OF ATROPHY AND MICROVASCULAR ISCHEMIA. NO ACUTE PROCESS. EVIDENCE OF ACUTE STROKE: NO. Carotid Doppler Study 02/10/18 00:00 IMPRESSION: NO HEMODYNAMICALLY SIGNIFICANT STENOSIS. Qualifiers - * PATIENT BEING DISCHARGED WITH ANY OF THE FOLLOWING DIAGNOSIS: No
[2018-02-13] MEDS: AMLODIPINE BESYLATE 5 MG TABLET PO SCH (09:50)
[2018-02-13] MEDS: ALLOPURINOL 300 MG TABLET PO SCH (09:50)
[2018-02-13] MEDS: ASPIRIN 81 MG TABLET, ENT COATED PO SCH (09:50)
[2018-02-13] MEDS: LEVETIRACETAM 500 MG TABLET PO SCH ×2 (09:51→23:05)
[2018-02-13] MEDS: ENOXAPARIN SODIUM INJ 30 MG/0.3 ML DISP.SYRIN SUBCUT SCH (09:52)
[2018-02-13] MEDS: ATORVASTATIN CALCIUM 10 MG TABLET PO SCH (23:07)
[2018-02-13] MEDS: TRAZODONE HCL 50 MG TABLET PO SCH (23:43)
[2018-02-14] MEDS: LEVOTHYROXINE SODIUM 0.1 MG TABLET PO SCH (05:42)
[2018-02-14] MEDS: METRONIDAZOLE 500 MG TABLET PO SCH ×3 (05:42→21:33)
[2018-02-14] MEDS: LEVETIRACETAM 500 MG TABLET PO SCH ×2 (11:26→21:32)
[2018-02-14] MEDS: ALLOPURINOL 300 MG TABLET PO SCH (11:26)
[2018-02-14] MEDS: AMLODIPINE BESYLATE 5 MG TABLET PO SCH (11:26)
[2018-02-14] MEDS: ASPIRIN 81 MG TABLET, ENT COATED PO SCH (11:26)
[2018-02-14] MEDS: ENOXAPARIN SODIUM INJ 30 MG/0.3 ML DISP.SYRIN SUBCUT SCH (11:27)
[2018-02-14] MEDS: TRAZODONE HCL 50 MG TABLET PO SCH (21:32)
[2018-02-14] MEDS: ATORVASTATIN CALCIUM 10 MG TABLET PO SCH (21:32)
--- NOTE | 2018-02-14 22:30 | PDOC PROGRESS REPORT ---
Subjective Progress Note for:: 02/14/18 Subjective:: Patient is nonverbal and unable to provide any verbal feedback, but does provide some occasional nonverbal feedback via head nods or shakes in response to yes or no questions. Reason For Visit: TIA versus just advancing dementia. Patient was thought to have some facial droop by out of town family members visiting. However, spouse indicates the patient did not appear to demonstrate any new sign of any neurologic deficit and also has facial droop on the dependent side of his face because he is edentulous. Physical Exam Vital Signs: Temp Pulse Resp BP Pulse Ox 97.7 F 57 L 20 121/68 97 02/14/18 19:15 02/14/18 19:15 02/14/18 19:15 02/14/18 19:15 02/14/18 19:15 Intake & Output 02/13/18 02/14/18 02/15/18 06:59 06:59 06:59 Intake Total 1387 315 0 Balance 1387 315 0 Weight 76.8 kg 77.5 kg General appearance: PRESENT: no acute distress, cooperative, thin Head exam: PRESENT: normocephalic Eye exam: ABSENT: conjunctival injection, scleral icterus Mouth exam: PRESENT: moist, tongue midline Teeth exam: PRESENT: edentulous Neck exam: ABSENT: carotid bruit, JVD, tenderness, tracheal deviation Respiratory exam: PRESENT: clear to auscultation osmar, unlabored Cardiovascular exam: PRESENT: RRR. ABSENT: gallop, systolic murmur Pulses: PRESENT: normal radial pulses, normal dorsalis pedis pul GI/Abdominal exam: PRESENT: normal bowel sounds, soft. ABSENT: distended, guarding, rigid, tenderness Rectal exam: PRESENT: deferred Extremities exam: PRESENT: other - Generalized atrophy musculature Neurological exam: PRESENT: alert, awake, reflexes normal, other - Did not follow motor commands well, but did not seem to demonstrate any focal deficit Psychiatric exam: PRESENT: flat affect, other - Occasionally seemed to answer questions appropriately with head movements Skin exam: PRESENT: dry, intact, warm. ABSENT: cyanosis, rash Results Laboratory Results: 02/11/18 04:16 02/11/18 04:16 Impressions: Chest X-Ray 02/09/18 16:19 IMPRESSION: NO ACUTE RADIOGRAPHIC FINDING IN THE CHEST. Head CT 02/09/18 16:19 IMPRESSION: CHRONIC CHANGES OF ATROPHY AND MICROVASCULAR ISCHEMIA. NO ACUTE PROCESS. EVIDENCE OF ACUTE STROKE: NO. Carotid Doppler Study 02/10/18 00:00 IMPRESSION: NO HEMODYNAMICALLY SIGNIFICANT STENOSIS. Assessment & Plan - Diagnosis (1) Failure to thrive Qualifiers: Failure to thrive age range: in adult Qualified Code(s): R62.7 - Adult failure to thrive Is this a current diagnosis for this admission?: Yes Plan: Patient is offered 3 meals a day, but rarely eats even bites of food. Has been seen by hospice according to the nurses, and apparently hospice plans to take over care upon discharge Discharge paperwork was performed by PCP yesterday, but arrangements could not be made in time before the weekend (2) Malnutrition due to starvation Is this a current diagnosis for this admission?: Yes Plan: Continue to encourage oral nutrition Provide assistance with all meals Continue Megace (3) DNR (do not resuscitate) Is this a current diagnosis for this admission?: Yes Plan: Continued DNR wishes Hospice care upon discharge (4) Dementia Qualifiers: Dementia type: unspecified type Dementia behavioral disturbance: without behavioral disturbance Qualified Code(s): F03.90 - Unspecified dementia without behavioral disturbance Is this a current diagnosis for this admission?: Yes Plan: Continue nonpharmacological supportive care - Time Time Spent with patient: 25-34 minutes Medications reviewed and adjusted accordingly: Yes Anticipated discharge: Hospice Within: within 48 hours
[2018-02-15] MEDS: METRONIDAZOLE 500 MG TABLET PO SCH ×3 (06:40→22:50)
[2018-02-15] MEDS: LEVOTHYROXINE SODIUM 0.1 MG TABLET PO SCH (06:40)
[2018-02-15] MEDS: ASPIRIN 81 MG TABLET, ENT COATED PO SCH ×2 (11:32→11:54)
[2018-02-15] MEDS: LEVETIRACETAM 500 MG TABLET PO SCH (11:33)
[2018-02-15] MEDS: ENOXAPARIN SODIUM INJ 30 MG/0.3 ML DISP.SYRIN SUBCUT SCH (11:33)
[2018-02-15] MEDS: ALLOPURINOL 300 MG TABLET PO SCH (11:33)
[2018-02-15] MEDS: AMLODIPINE BESYLATE 5 MG TABLET PO SCH ×2 (11:33→11:54)
--- NOTE | 2018-02-15 16:16 | PDOC PROGRESS REPORT ---
Subjective Progress Note for:: 02/15/18 Subjective:: Patient is nonverbal and unable to provide any verbal feedback, but does provide some occasional nonverbal feedback via head nods or shakes in response to yes or no questions. Reason For Visit: f/u poss TIA vs CVA Physical Exam Vital Signs: Temp Pulse Resp BP Pulse Ox 97.5 F 54 L 20 109/81 97 02/15/18 11:17 02/15/18 14:00 02/15/18 11:17 02/15/18 11:17 02/15/18 11:17 Intake & Output 02/14/18 02/15/18 02/16/18 06:59 06:59 06:59 Intake Total 315 318 0 Balance 315 318 0 Weight 77.5 kg 75.6 kg Additional comments: General appearance: PRESENT: no acute distress, cooperative, thin Head exam: PRESENT: normocephalic Eye exam: ABSENT: conjunctival injection, scleral icterus Mouth exam: PRESENT: moist, tongue midline Teeth exam: PRESENT: edentulous Neck exam: ABSENT: carotid bruit, JVD, tenderness, tracheal deviation Respiratory exam: PRESENT: clear to auscultation osmar, unlabored Cardiovascular exam: PRESENT: RRR. ABSENT: gallop, systolic murmur Pulses: PRESENT: normal radial pulses, normal dorsalis pedis pul GI/Abdominal exam: PRESENT: normal bowel sounds, soft. ABSENT: distended, guarding, rigid, tenderness Rectal exam: PRESENT: deferred Extremities exam: PRESENT: other - Generalized atrophy musculature Neurological exam: PRESENT: alert, awake, reflexes normal, other - Did not follow motor commands well, but did not seem to demonstrate any focal deficit Psychiatric exam: PRESENT: flat affect, other - Occasionally seemed to answer questions appropriately with head movements Skin exam: PRESENT: dry, intact, warm. ABSENT: cyanosis, rash Results Laboratory Results: 02/11/18 04:16 02/11/18 04:16 Impressions: Chest X-Ray 02/09/18 16:19 IMPRESSION: NO ACUTE RADIOGRAPHIC FINDING IN THE CHEST. Head CT 02/09/18 16:19 IMPRESSION: CHRONIC CHANGES OF ATROPHY AND MICROVASCULAR ISCHEMIA. NO ACUTE PROCESS. EVIDENCE OF ACUTE STROKE: NO. Carotid Doppler Study 02/10/18 00:00 IMPRESSION: NO HEMODYNAMICALLY SIGNIFICANT STENOSIS. Assessment & Plan - Diagnosis (1) Failure to thrive Qualifiers: Failure to thrive age range: in adult Qualified Code(s): R62.7 - Adult failure to thrive Is this a current diagnosis for this admission?: Yes Plan: Patient is offered 3 meals a day, but rarely eats even bites of food. Has been seen by hospice according to the nurses, and apparently hospice plans to take over care upon discharge Discharge paperwork was performed by PCP 02/13/18, but apparently arrangements could not be made in time before the weekend (2) Malnutrition due to starvation Is this a current diagnosis for this admission?: Yes Plan: Continue to encourage oral nutrition Provide assistance with all meals Continue Megace (3) DNR (do not resuscitate) Is this a current diagnosis for this admission?: Yes Plan: Continued DNR wishes Hospice care upon discharge planned (4) Dementia Qualifiers: Dementia type: unspecified type Dementia behavioral disturbance: without behavioral disturbance Qualified Code(s): F03.90 - Unspecified dementia without behavioral disturbance Is this a current diagnosis for this admission?: Yes Plan: Continue nonpharmacological supportive care (5) Generalized weakness Is this a current diagnosis for this admission?: Yes Plan: Pt originally thought to have had stroke by visiting family who noted facial droop. However, either TIA or gen weakness with facial droop r/t edentulous status. No facial droop when awake and centered. - Time Anticipated discharge: SNF, Hospice Within: within 24 hours
[2018-02-15] MEDS: LEVETIRACETAM ORAL SOLN 500 MG/5 ML UDCUP PO SCH (22:49)
[2018-02-15] MEDS: ATORVASTATIN CALCIUM 10 MG TABLET PO SCH (22:49)
[2018-02-15] MEDS: TRAZODONE HCL 50 MG TABLET PO SCH (22:49)
[2018-02-16] MEDS: LEVOTHYROXINE SODIUM 0.1 MG TABLET PO SCH (06:12)
[2018-02-16] MEDS: METRONIDAZOLE 500 MG TABLET PO SCH ×3 (06:12→21:35)
--- NOTE | 2018-02-16 09:05 | PDOC PROGRESS REPORT ---
Subjective Progress Note for:: 02/16/18 Subjective:: The patient is stable no significant change. He is tolerating medications well. We are awaiting the approval by the insurance company for him to be transferred to a alf Reason For Visit: CVA Physical Exam Vital Signs: Temp Pulse Resp BP Pulse Ox 97.7 F 65 21 H 110/67 97 02/16/18 07:36 02/16/18 07:36 02/16/18 07:36 02/16/18 07:36 02/16/18 07:36 Intake & Output 02/15/18 02/16/18 02/17/18 06:59 06:59 06:59 Intake Total 318 200 Balance 318 200 Weight 75.6 kg 75.3 kg General appearance: PRESENT: mild distress Head exam: PRESENT: atraumatic Eye exam: PRESENT: conjunctiva pink Respiratory exam: PRESENT: clear to auscultation osmar Cardiovascular exam: PRESENT: RRR, +S1, +S2 GI/Abdominal exam: PRESENT: normal bowel sounds, soft Extremities exam: PRESENT: other Musculoskeletal exam: PRESENT: other Neurological exam: PRESENT: awake Results Laboratory Results: 02/11/18 04:16 02/11/18 04:16 Impressions: Chest X-Ray 02/09/18 16:19 IMPRESSION: NO ACUTE RADIOGRAPHIC FINDING IN THE CHEST. Head CT 02/09/18 16:19 IMPRESSION: CHRONIC CHANGES OF ATROPHY AND MICROVASCULAR ISCHEMIA. NO ACUTE PROCESS. EVIDENCE OF ACUTE STROKE: NO. Carotid Doppler Study 02/10/18 00:00 IMPRESSION: NO HEMODYNAMICALLY SIGNIFICANT STENOSIS. Assessment & Plan - Diagnosis (1) Dementia Qualifiers: Dementia type: unspecified type Dementia behavioral disturbance: without behavioral disturbance Qualified Code(s): F03.90 - Unspecified dementia without behavioral disturbance Is this a current diagnosis for this admission?: Yes Plan: We will continue with current medications (2) Hypertension Is this a current diagnosis for this admission?: Yes Plan: Adjust blood pressure medication at diet (3) Hypothyroid Is this a current diagnosis for this admission?: Yes Plan: Decrease levothyroxine (4) Seizure disorder Is this a current diagnosis for this admission?: Yes Plan: We will add Keppra (5) TIA (transient ischemic attack) Is this a current diagnosis for this admission?: Yes (6) DNR (do not resuscitate) Is this a current diagnosis for this admission?: Yes Plan: Continue DNR (7) C. difficile colitis Is this a current diagnosis for this admission?: Yes Plan: We will continue with Tom
[2018-02-16] MEDS: ALLOPURINOL 300 MG TABLET PO SCH (10:08)
[2018-02-16] MEDS: ENOXAPARIN SODIUM INJ 30 MG/0.3 ML DISP.SYRIN SUBCUT SCH (10:08)
[2018-02-16] MEDS: LEVETIRACETAM ORAL SOLN 500 MG/5 ML UDCUP PO SCH ×2 (10:08→21:36)
[2018-02-16] MEDS: AMLODIPINE BESYLATE 5 MG TABLET PO SCH (10:09)
[2018-02-16] MEDS: ASPIRIN 81 MG TABLET, ENT COATED PO SCH (10:09)
[2018-02-16] MEDS: TRAZODONE HCL 50 MG TABLET PO SCH (21:35)
[2018-02-16] MEDS: ATORVASTATIN CALCIUM 10 MG TABLET PO SCH (21:35)
[2018-02-17] MEDS: LEVOTHYROXINE SODIUM 0.1 MG TABLET PO SCH (05:42)
[2018-02-17] MEDS: METRONIDAZOLE 500 MG TABLET PO SCH ×3 (05:42→21:58)
--- NOTE | 2018-02-17 08:11 | PDOC PROGRESS REPORT ---
Subjective Progress Note for:: 02/17/18 Subjective:: The patient examined on the rounds. No significant change compared to yesterday. The patient is still awake but does not follow commands. Reason For Visit: CVA Physical Exam Vital Signs: Temp Pulse Resp BP Pulse Ox 97.6 F 70 22 H 110/55 L 97 02/17/18 03:51 02/17/18 03:51 02/17/18 03:51 02/17/18 03:51 02/17/18 03:51 Intake & Output 02/16/18 02/17/18 02/18/18 06:59 06:59 06:59 Intake Total 200 250 Balance 200 250 Weight 75.3 kg 74.2 kg General appearance: PRESENT: no acute distress Head exam: PRESENT: atraumatic Eye exam: PRESENT: conjunctiva pink Mouth exam: PRESENT: dry mucosa Neck exam: ABSENT: carotid bruit, JVD Respiratory exam: PRESENT: clear to auscultation osmar Cardiovascular exam: PRESENT: RRR, +S1, +S2 GI/Abdominal exam: PRESENT: normal bowel sounds, soft Extremities exam: PRESENT: tenderness Musculoskeletal exam: PRESENT: tenderness Results Laboratory Results: 02/11/18 04:16 02/11/18 04:16 Impressions: Chest X-Ray 02/09/18 16:19 IMPRESSION: NO ACUTE RADIOGRAPHIC FINDING IN THE CHEST. Head CT 02/09/18 16:19 IMPRESSION: CHRONIC CHANGES OF ATROPHY AND MICROVASCULAR ISCHEMIA. NO ACUTE PROCESS. EVIDENCE OF ACUTE STROKE: NO. Carotid Doppler Study 02/10/18 00:00 IMPRESSION: NO HEMODYNAMICALLY SIGNIFICANT STENOSIS. Assessment & Plan - Diagnosis (1) Dementia Qualifiers: Dementia type: unspecified type Dementia behavioral disturbance: without behavioral disturbance Qualified Code(s): F03.90 - Unspecified dementia without behavioral disturbance Is this a current diagnosis for this admission?: Yes Plan: We will continue with current medications (2) Hypertension Is this a current diagnosis for this admission?: Yes (3) Hypothyroid Is this a current diagnosis for this admission?: Yes (4) Seizure disorder Is this a current diagnosis for this admission?: Yes Plan: We will add Freddiera (5) TIA (transient ischemic attack) Is this a current diagnosis for this admission?: Yes (6) DNR (do not resuscitate) Is this a current diagnosis for this admission?: Yes (7) C. difficile colitis Is this a current diagnosis for this admission?: Yes Plan: We will continue with Tom
[2018-02-17] MEDS: ASPIRIN 81 MG TABLET, ENT COATED PO SCH (10:24)
[2018-02-17] MEDS: ENOXAPARIN SODIUM INJ 30 MG/0.3 ML DISP.SYRIN SUBCUT SCH (10:24)
[2018-02-17] MEDS: LEVETIRACETAM ORAL SOLN 500 MG/5 ML UDCUP PO SCH ×2 (10:24→21:58)
[2018-02-17] MEDS: ALLOPURINOL 300 MG TABLET PO SCH (10:24)
[2018-02-17] MEDS: AMLODIPINE BESYLATE 5 MG TABLET PO SCH (10:24)
[2018-02-17] MEDS: ATORVASTATIN CALCIUM 10 MG TABLET PO SCH (21:58)
[2018-02-17] MEDS: TRAZODONE HCL 50 MG TABLET PO SCH (21:58)
[2018-02-18] MEDS: METRONIDAZOLE 500 MG TABLET PO SCH ×3 (05:59→22:34)
[2018-02-18] MEDS: LEVOTHYROXINE SODIUM 0.1 MG TABLET PO SCH (05:59)
--- NOTE | 2018-02-18 08:43 | PDOC PROGRESS REPORT ---
Subjective Progress Note for:: 02/18/18 Subjective:: The patient is awake but does not follow commands. He does not appear to be in any distress Reason For Visit: CVA Physical Exam Vital Signs: Temp Pulse Resp BP Pulse Ox 97.8 F 70 22 H 136/89 H 96 02/18/18 04:11 02/18/18 04:11 02/18/18 04:11 02/18/18 04:11 02/18/18 04:11 Intake & Output 02/17/18 02/18/18 02/19/18 06:59 06:59 06:59 Intake Total 250 0 Balance 250 0 Weight 74.2 kg 73.2 kg General appearance: PRESENT: mild distress Head exam: PRESENT: atraumatic Eye exam: PRESENT: conjunctiva pink Mouth exam: PRESENT: dry mucosa Neck exam: PRESENT: carotid bruit. ABSENT: JVD Cardiovascular exam: PRESENT: RRR, +S1, +S2 GI/Abdominal exam: PRESENT: normal bowel sounds, soft Extremities exam: PRESENT: tenderness Musculoskeletal exam: PRESENT: tenderness Psychiatric exam: PRESENT: flat affect Results Laboratory Results: 02/11/18 04:16 02/11/18 04:16 Impressions: Chest X-Ray 02/09/18 16:19 IMPRESSION: NO ACUTE RADIOGRAPHIC FINDING IN THE CHEST. Head CT 02/09/18 16:19 IMPRESSION: CHRONIC CHANGES OF ATROPHY AND MICROVASCULAR ISCHEMIA. NO ACUTE PROCESS. EVIDENCE OF ACUTE STROKE: NO. Carotid Doppler Study 02/10/18 00:00 IMPRESSION: NO HEMODYNAMICALLY SIGNIFICANT STENOSIS. Assessment & Plan - Diagnosis (1) Dementia Qualifiers: Dementia type: unspecified type Dementia behavioral disturbance: without behavioral disturbance Qualified Code(s): F03.90 - Unspecified dementia without behavioral disturbance Is this a current diagnosis for this admission?: Yes Plan: We will continue with current medications (2) Hypertension Is this a current diagnosis for this admission?: Yes Plan: Adjust blood pressure medication at diet (3) Hypothyroid Is this a current diagnosis for this admission?: Yes Plan: Decrease levothyroxine (4) Seizure disorder Is this a current diagnosis for this admission?: Yes Plan: We will add Keppra (5) TIA (transient ischemic attack) Is this a current diagnosis for this admission?: Yes (6) DNR (do not resuscitate) Is this a current diagnosis for this admission?: Yes Plan: Continue DNR (7) C. difficile colitis Is this a current diagnosis for this admission?: Yes Plan: We will continue with Tom
[2018-02-18] MEDS: ENOXAPARIN SODIUM INJ 30 MG/0.3 ML DISP.SYRIN SUBCUT SCH (09:57)
[2018-02-18] MEDS: ASPIRIN 81 MG TABLET, ENT COATED PO SCH (09:57)
[2018-02-18] MEDS: ALLOPURINOL 300 MG TABLET PO SCH (10:27)
[2018-02-18] MEDS: LEVETIRACETAM ORAL SOLN 500 MG/5 ML UDCUP PO SCH ×2 (10:31→22:34)
[2018-02-18] MEDS: AMLODIPINE BESYLATE 5 MG TABLET PO SCH (11:44)
[2018-02-18] MEDS: TRAZODONE HCL 50 MG TABLET PO SCH (22:34)
[2018-02-18] MEDS: ATORVASTATIN CALCIUM 10 MG TABLET PO SCH (22:34)
[2018-02-19] MEDS: METRONIDAZOLE 500 MG TABLET PO SCH ×4 (03:15→22:39)
[2018-02-19] MEDS: ATORVASTATIN CALCIUM 10 MG TABLET PO SCH ×2 (03:16→22:40)
[2018-02-19] MEDS: TRAZODONE HCL 50 MG TABLET PO SCH ×2 (03:16→22:39)
[2018-02-19] MEDS: LEVETIRACETAM ORAL SOLN 500 MG/5 ML UDCUP PO SCH ×3 (03:16→22:39)
[2018-02-19] MEDS: LEVOTHYROXINE SODIUM 0.1 MG TABLET PO SCH (06:07)
--- NOTE | 2018-02-19 08:29 | PDOC PROGRESS REPORT ---
Subjective Progress Note for:: 02/19/18 Subjective:: The patient is awake. He does not follow commands. is at the bedside. Advised the that we are waiting for the rehab and placement. She is not really happy about him receiving Lovenox injections but she does not want to stop them Reason For Visit: CVA Physical Exam Vital Signs: Temp Pulse Resp BP Pulse Ox 97.5 F 94 17 145/70 H 93 02/18/18 23:32 02/18/18 23:32 02/18/18 23:32 02/18/18 23:32 02/18/18 23:32 Intake & Output 02/18/18 02/19/18 02/20/18 06:59 06:59 06:59 Intake Total 0 Balance 0 Weight 73.2 kg 71.4 kg General appearance: PRESENT: no acute distress Head exam: PRESENT: atraumatic Eye exam: PRESENT: conjunctiva pink Neck exam: ABSENT: carotid bruit, JVD Respiratory exam: PRESENT: clear to auscultation osmar Cardiovascular exam: PRESENT: RRR, +S1, +S2 GI/Abdominal exam: PRESENT: normal bowel sounds, soft Extremities exam: PRESENT: tenderness Musculoskeletal exam: PRESENT: tenderness Neurological exam: PRESENT: awake Psychiatric exam: PRESENT: flat affect Results Laboratory Results: 02/11/18 04:16 02/11/18 04:16 Impressions: Chest X-Ray 02/09/18 16:19 IMPRESSION: NO ACUTE RADIOGRAPHIC FINDING IN THE CHEST. Head CT 02/09/18 16:19 IMPRESSION: CHRONIC CHANGES OF ATROPHY AND MICROVASCULAR ISCHEMIA. NO ACUTE PROCESS. EVIDENCE OF ACUTE STROKE: NO. Carotid Doppler Study 02/10/18 00:00 IMPRESSION: NO HEMODYNAMICALLY SIGNIFICANT STENOSIS. Assessment & Plan - Diagnosis (1) Dementia Qualifiers: Dementia type: unspecified type Dementia behavioral disturbance: without behavioral disturbance Qualified Code(s): F03.90 - Unspecified dementia without behavioral disturbance Is this a current diagnosis for this admission?: Yes Plan: We will continue with current medications (2) Hypertension Is this a current diagnosis for this admission?: Yes (3) Hypothyroid Is this a current diagnosis for this admission?: Yes Plan: Decrease levothyroxine (4) Seizure disorder Is this a current diagnosis for this admission?: Yes Plan: We will add Keppra (5) TIA (transient ischemic attack) Is this a current diagnosis for this admission?: Yes (6) DNR (do not resuscitate) Is this a current diagnosis for this admission?: Yes Plan: Continue DNR (7) C. difficile colitis Is this a current diagnosis for this admission?: Yes Plan: We will continue with Tom
[2018-02-19] MEDS: ENOXAPARIN SODIUM INJ 30 MG/0.3 ML DISP.SYRIN SUBCUT SCH (10:32)
[2018-02-19] MEDS: ASPIRIN 81 MG TABLET, ENT COATED PO SCH (10:32)
[2018-02-19] MEDS: AMLODIPINE BESYLATE 5 MG TABLET PO SCH (10:33)
[2018-02-19] MEDS: ALLOPURINOL 300 MG TABLET PO SCH (10:34)
[2018-02-20] MEDS: METRONIDAZOLE 500 MG TABLET PO SCH ×2 (06:17→14:05)
[2018-02-20] MEDS: LEVOTHYROXINE SODIUM 0.1 MG TABLET PO SCH (06:17)
--- NOTE | 2018-02-20 08:16 | PDOC PROGRESS REPORT ---
Subjective Progress Note for:: 02/20/18 Subjective:: The patient is awake. He does not follow commands. He is refusing all of his medications and only takes them occasionally. The family is aware. Reason For Visit: CVA Physical Exam Vital Signs: Temp Pulse Resp BP Pulse Ox 98.4 F 102 H 17 130/84 H 93 02/19/18 23:40 02/19/18 23:40 02/19/18 23:40 02/19/18 23:40 02/19/18 23:40 Intake & Output 02/19/18 02/20/18 02/21/18 06:59 06:59 06:59 Weight 71.4 kg 70.4 kg General appearance: PRESENT: no acute distress Head exam: PRESENT: atraumatic Eye exam: PRESENT: conjunctiva pink Mouth exam: PRESENT: dry mucosa Neck exam: PRESENT: carotid bruit. ABSENT: JVD Respiratory exam: PRESENT: clear to auscultation osmar Cardiovascular exam: PRESENT: RRR, +S1, +S2 GI/Abdominal exam: PRESENT: normal bowel sounds, soft Extremities exam: PRESENT: tenderness, other Musculoskeletal exam: PRESENT: tenderness, other Neurological exam: PRESENT: awake. ABSENT: oriented to person, oriented to place, oriented to time Results Laboratory Results: 02/11/18 04:16 02/11/18 04:16 Impressions: Chest X-Ray 02/09/18 16:19 IMPRESSION: NO ACUTE RADIOGRAPHIC FINDING IN THE CHEST. Head CT 02/09/18 16:19 IMPRESSION: CHRONIC CHANGES OF ATROPHY AND MICROVASCULAR ISCHEMIA. NO ACUTE PROCESS. EVIDENCE OF ACUTE STROKE: NO. Carotid Doppler Study 02/10/18 00:00 IMPRESSION: NO HEMODYNAMICALLY SIGNIFICANT STENOSIS. Assessment & Plan - Diagnosis (1) Dementia Qualifiers: Dementia type: unspecified type Dementia behavioral disturbance: without behavioral disturbance Qualified Code(s): F03.90 - Unspecified dementia without behavioral disturbance Is this a current diagnosis for this admission?: Yes Plan: We will continue with current medications (2) Hypertension Is this a current diagnosis for this admission?: Yes Plan: Adjust blood pressure medication at diet (3) Hypothyroid Is this a current diagnosis for this admission?: Yes Plan: Decrease levothyroxine (4) Seizure disorder Is this a current diagnosis for this admission?: Yes (5) TIA (transient ischemic attack) Is this a current diagnosis for this admission?: Yes (6) DNR (do not resuscitate) Is this a current diagnosis for this admission?: Yes Plan: Continue DNR (7) C. difficile colitis Is this a current diagnosis for this admission?: Yes Plan: We will try to continue 3 more days if patient will be taking his medication but the colitis has improved - Plan Summary Plan Summary: Awaiting placement in the rehab and possibly transition to jail care
[2018-02-20] MEDS: ASPIRIN 81 MG TABLET, ENT COATED PO SCH (09:40)
[2018-02-20] MEDS: AMLODIPINE BESYLATE 5 MG TABLET PO SCH (09:40)
[2018-02-20] MEDS: ENOXAPARIN SODIUM INJ 30 MG/0.3 ML DISP.SYRIN SUBCUT SCH (09:40)
[2018-02-20] MEDS: LEVETIRACETAM ORAL SOLN 500 MG/5 ML UDCUP PO SCH (09:43)
[2018-02-20] MEDS: ALLOPURINOL 300 MG TABLET PO SCH (09:44)
[2018-02-20] MEDS: ATORVASTATIN CALCIUM 10 MG TABLET PO SCH (21:23)
[2018-02-20] MEDS: TRAZODONE HCL 50 MG TABLET PO SCH (21:23)
[2018-02-21] MEDS: LEVETIRACETAM ORAL SOLN 500 MG/5 ML UDCUP PO SCH ×3 (00:03→20:59)
[2018-02-21] MEDS: METRONIDAZOLE 500 MG TABLET PO SCH ×4 (00:03→21:54)
[2018-02-21] MEDS: LEVOTHYROXINE SODIUM 0.1 MG TABLET PO SCH (05:53)
[2018-02-21] MEDS: AMLODIPINE BESYLATE 5 MG TABLET PO SCH ×2 (10:19→10:29)
[2018-02-21] MEDS: ASPIRIN 81 MG TABLET, ENT COATED PO SCH (10:20)
[2018-02-21] MEDS: ALLOPURINOL 300 MG TABLET PO SCH (10:20)
[2018-02-21] MEDS: ENOXAPARIN SODIUM INJ 30 MG/0.3 ML DISP.SYRIN SUBCUT SCH (10:20)
--- NOTE | 2018-02-21 10:37 | PDOC PROGRESS REPORT ---
Subjective Progress Note for:: 02/21/18 Subjective:: Patient is demented nonverbal He appears comfortable is at bedside Reason For Visit: CVA Physical Exam Vital Signs: Temp Pulse Resp BP Pulse Ox 97.6 F 93 18 131/88 H 94 02/21/18 08:40 02/21/18 08:40 02/21/18 08:40 02/21/18 08:40 02/21/18 08:40 Intake & Output 02/20/18 02/21/18 02/22/18 06:59 06:59 06:59 Intake Total 260 Balance 260 Weight 155 lb 3.287 oz 158 lb 8.198 oz General appearance: PRESENT: no acute distress Head exam: PRESENT: atraumatic Eye exam: ABSENT: conjunctival injection Ear exam: ABSENT: bleeding Neck exam: ABSENT: meningismus, tracheostomy Respiratory exam: PRESENT: clear to auscultation osmar. ABSENT: accessory muscle use, wheezes Cardiovascular exam: PRESENT: RRR GI/Abdominal exam: PRESENT: normal bowel sounds, soft. ABSENT: distended, mass , tenderness Rectal exam: PRESENT: deferred Extremities exam: ABSENT: pedal edema Neurological exam: PRESENT: aphasic Results Laboratory Results: 02/11/18 04:16 02/11/18 04:16 Impressions: Chest X-Ray 02/09/18 16:19 IMPRESSION: NO ACUTE RADIOGRAPHIC FINDING IN THE CHEST. Head CT 02/09/18 16:19 IMPRESSION: CHRONIC CHANGES OF ATROPHY AND MICROVASCULAR ISCHEMIA. NO ACUTE PROCESS. EVIDENCE OF ACUTE STROKE: NO. Carotid Doppler Study 02/10/18 00:00 IMPRESSION: NO HEMODYNAMICALLY SIGNIFICANT STENOSIS. Assessment & Plan - Diagnosis (1) Dementia Qualifiers: Dementia type: unspecified type Dementia behavioral disturbance: without behavioral disturbance Qualified Code(s): F03.90 - Unspecified dementia without behavioral disturbance Is this a current diagnosis for this admission?: Yes Plan: Waiting for placement (2) Generalized weakness Is this a current diagnosis for this admission?: Yes (3) Hypertension Is this a current diagnosis for this admission?: Yes Plan: Continue amlodipine (4) Hypothyroid Is this a current diagnosis for this admission?: Yes Plan: Continue levothyroxine (5) Seizure disorder Is this a current diagnosis for this admission?: Yes (6) TIA (transient ischemic attack) Is this a current diagnosis for this admission?: Yes (7) C. difficile colitis Is this a current diagnosis for this admission?: Yes Plan: Continue Flagyl
[2018-02-21] MEDS: TRAZODONE HCL 50 MG TABLET PO SCH (21:54)
[2018-02-21] MEDS: ATORVASTATIN CALCIUM 10 MG TABLET PO SCH (21:54)
[2018-02-22] MEDS: METRONIDAZOLE 500 MG TABLET PO SCH ×3 (06:09→21:31)
[2018-02-22] MEDS: LEVOTHYROXINE SODIUM 0.1 MG TABLET PO SCH (06:10)
--- NOTE | 2018-02-22 08:23 | PDOC PROGRESS REPORT ---
Subjective Progress Note for:: 02/22/18 Subjective:: Patient is laying in bed in no respiratory distress He is nonverbal is not at bedside RN reports poor oral intake Reason For Visit: CVA Physical Exam Vital Signs: Temp Pulse Resp BP Pulse Ox 97.9 F 88 18 123/64 97 02/21/18 23:56 02/21/18 23:56 02/21/18 23:56 02/21/18 23:56 02/21/18 23:56 Intake & Output 02/21/18 02/22/18 02/23/18 06:59 06:59 06:59 Intake Total 260 220 Balance 260 220 Weight 158 lb 8.198 oz 157 lb 3.033 oz General appearance: PRESENT: no acute distress, thin Head exam: PRESENT: atraumatic, normocephalic Eye exam: PRESENT: conjunctiva pink. ABSENT: conjunctival injection Respiratory exam: ABSENT: accessory muscle use Neurological exam: PRESENT: aphasic Psychiatric exam: PRESENT: other - Nonverbal Results Laboratory Results: 02/11/18 04:16 02/11/18 04:16 Impressions: Chest X-Ray 02/09/18 16:19 IMPRESSION: NO ACUTE RADIOGRAPHIC FINDING IN THE CHEST. Head CT 02/09/18 16:19 IMPRESSION: CHRONIC CHANGES OF ATROPHY AND MICROVASCULAR ISCHEMIA. NO ACUTE PROCESS. EVIDENCE OF ACUTE STROKE: NO. Carotid Doppler Study 02/10/18 00:00 IMPRESSION: NO HEMODYNAMICALLY SIGNIFICANT STENOSIS. Assessment & Plan - Diagnosis (1) Dementia Qualifiers: Dementia type: unspecified type Dementia behavioral disturbance: without behavioral disturbance Qualified Code(s): F03.90 - Unspecified dementia without behavioral disturbance Is this a current diagnosis for this admission?: Yes Plan: Still waiting for placement (2) Generalized weakness Is this a current diagnosis for this admission?: Yes (3) Hypertension Is this a current diagnosis for this admission?: Yes Plan: Will continue amlodipine (4) Hypothyroid Is this a current diagnosis for this admission?: Yes Plan: Continue levothyroxine (5) Seizure disorder Is this a current diagnosis for this admission?: Yes Plan: Continue Keppra (6) TIA (transient ischemic attack) Is this a current diagnosis for this admission?: Yes (7) C. difficile colitis Is this a current diagnosis for this admission?: Yes Plan: Continue Flagyl - Plan Summary Plan Summary: Awaiting placement Poor functional capacity and poor prognosis Dr. Bonilla will resume care tomorrow
[2018-02-22] MEDS: LEVETIRACETAM ORAL SOLN 500 MG/5 ML UDCUP PO SCH ×2 (11:24→21:30)
[2018-02-22] MEDS: ENOXAPARIN SODIUM INJ 30 MG/0.3 ML DISP.SYRIN SUBCUT SCH (11:24)
[2018-02-22] MEDS: AMLODIPINE BESYLATE 5 MG TABLET PO SCH (11:25)
[2018-02-22] MEDS: ALLOPURINOL 300 MG TABLET PO SCH (11:25)
[2018-02-22] MEDS: ASPIRIN 81 MG TABLET, ENT COATED PO SCH (11:25)
[2018-02-22] MEDS: ATORVASTATIN CALCIUM 10 MG TABLET PO SCH (21:32)
[2018-02-22] MEDS: TRAZODONE HCL 50 MG TABLET PO SCH (21:32)
[2018-02-23] MEDS: METRONIDAZOLE 500 MG TABLET PO SCH (05:39)
[2018-02-23] MEDS: LEVOTHYROXINE SODIUM 0.1 MG TABLET PO SCH (05:40)
--- NOTE | 2018-02-23 08:34 | PDOC PROGRESS REPORT ---
Subjective Progress Note for:: 02/23/18 Subjective:: The patient appears to be lethargic. He is still nonverbal and does not follow commands. Discussed with the [id number]. She states that she has received a denial from [facility] about long-term care and rehab and she is not capable of caring for patient any longer at home. Discussed with discharge planning about filling out the Medicaid application. Reason For Visit: CVA Physical Exam Vital Signs: Temp Pulse Resp BP Pulse Ox 97.3 F 114 H 20 99/86 H 92 02/23/18 07:31 02/23/18 07:31 02/23/18 07:31 02/23/18 07:31 02/23/18 07:31 Intake & Output 02/22/18 02/23/18 02/24/18 06:59 06:59 06:59 Intake Total 220 250 Balance 220 250 Weight 71.3 kg 70.1 kg General appearance: PRESENT: no acute distress Head exam: PRESENT: atraumatic Eye exam: PRESENT: conjunctiva pink Neck exam: ABSENT: carotid bruit, JVD Respiratory exam: PRESENT: rhonchi Cardiovascular exam: PRESENT: RRR, +S1, +S2 GI/Abdominal exam: PRESENT: normal bowel sounds, soft Extremities exam: PRESENT: tenderness Musculoskeletal exam: PRESENT: tenderness Neurological exam: PRESENT: awake Results Laboratory Results: 02/11/18 04:16 02/11/18 04:16 Impressions: Chest X-Ray 02/09/18 16:19 IMPRESSION: NO ACUTE RADIOGRAPHIC FINDING IN THE CHEST. Head CT 02/09/18 16:19 IMPRESSION: CHRONIC CHANGES OF ATROPHY AND MICROVASCULAR ISCHEMIA. NO ACUTE PROCESS. EVIDENCE OF ACUTE STROKE: NO. Carotid Doppler Study 02/10/18 00:00 IMPRESSION: NO HEMODYNAMICALLY SIGNIFICANT STENOSIS. Assessment & Plan - Diagnosis (1) Dementia Qualifiers: Dementia type: unspecified type Dementia behavioral disturbance: without behavioral disturbance Qualified Code(s): F03.90 - Unspecified dementia without behavioral disturbance Is this a current diagnosis for this admission?: Yes Plan: We will continue with current medications (2) Hypertension Is this a current diagnosis for this admission?: Yes Plan: Adjust blood pressure medication at diet (3) Hypothyroid Is this a current diagnosis for this admission?: Yes Plan: Decrease levothyroxine (4) Seizure disorder Is this a current diagnosis for this admission?: Yes (5) TIA (transient ischemic attack) Is this a current diagnosis for this admission?: Yes (6) DNR (do not resuscitate) Is this a current diagnosis for this admission?: Yes Plan: Continue DNR (7) C. difficile colitis Is this a current diagnosis for this admission?: Yes
[2018-02-23] MEDS: ALLOPURINOL 300 MG TABLET PO SCH (10:20)
[2018-02-23] MEDS: LEVETIRACETAM ORAL SOLN 500 MG/5 ML UDCUP PO SCH ×2 (10:21→21:57)
[2018-02-23] MEDS: ENOXAPARIN SODIUM INJ 30 MG/0.3 ML DISP.SYRIN SUBCUT SCH (10:21)
[2018-02-23] MEDS: ASPIRIN 81 MG TABLET, ENT COATED PO SCH (10:21)
[2018-02-23] MEDS: AMLODIPINE BESYLATE 5 MG TABLET PO SCH (10:21)
[2018-02-23] MEDS: ATORVASTATIN CALCIUM 10 MG TABLET PO SCH (21:58)
[2018-02-23] MEDS: TRAZODONE HCL 50 MG TABLET PO SCH ×2 (21:58→22:11)
[2018-02-24] MEDS: LEVOTHYROXINE SODIUM 0.1 MG TABLET PO SCH (05:49)
[2018-02-24] MEDS: ASPIRIN 81 MG TABLET, ENT COATED PO SCH (11:38)
[2018-02-24] MEDS: AMLODIPINE BESYLATE 5 MG TABLET PO SCH (11:38)
[2018-02-24] MEDS: ENOXAPARIN SODIUM INJ 30 MG/0.3 ML DISP.SYRIN SUBCUT SCH (11:39)
[2018-02-24] MEDS: LEVETIRACETAM ORAL SOLN 500 MG/5 ML UDCUP PO SCH ×2 (11:40→21:14)
[2018-02-24] MEDS: ALLOPURINOL 300 MG TABLET PO SCH (11:41)
--- NOTE | 2018-02-24 16:38 | PDOC PROGRESS REPORT ---
Subjective Progress Note for:: 02/24/18 Subjective:: stable, no change Reason For Visit: CVA Physical Exam Vital Signs: Temp Pulse Resp BP Pulse Ox 97.5 F 112 H 24 H 133/89 H 94 02/24/18 11:31 02/24/18 11:31 02/24/18 11:31 02/24/18 11:31 02/24/18 11:31 Intake & Output 02/23/18 02/24/18 02/25/18 06:59 06:59 06:59 Intake Total 250 237 60 Balance 250 237 60 Weight 70.1 kg 71 kg General appearance: PRESENT: no acute distress Head exam: PRESENT: atraumatic Eye exam: PRESENT: conjunctiva pink Neck exam: PRESENT: carotid bruit. ABSENT: JVD Respiratory exam: PRESENT: rhonchi Cardiovascular exam: PRESENT: RRR, +S1, +S2 GI/Abdominal exam: PRESENT: soft Psychiatric exam: PRESENT: flat affect Results Laboratory Results: 02/11/18 04:16 02/11/18 04:16 Impressions: Chest X-Ray 02/09/18 16:19 IMPRESSION: NO ACUTE RADIOGRAPHIC FINDING IN THE CHEST. Head CT 02/09/18 16:19 IMPRESSION: CHRONIC CHANGES OF ATROPHY AND MICROVASCULAR ISCHEMIA. NO ACUTE PROCESS. EVIDENCE OF ACUTE STROKE: NO. Carotid Doppler Study 02/10/18 00:00 IMPRESSION: NO HEMODYNAMICALLY SIGNIFICANT STENOSIS. Assessment & Plan - Diagnosis (1) Dementia Qualifiers: Dementia type: unspecified type Dementia behavioral disturbance: without behavioral disturbance Qualified Code(s): F03.90 - Unspecified dementia without behavioral disturbance Is this a current diagnosis for this admission?: Yes Plan: We will continue with current medications (2) Hypertension Is this a current diagnosis for this admission?: Yes Plan: Adjust blood pressure medication at diet (3) Hypothyroid Is this a current diagnosis for this admission?: Yes Plan: Decrease levothyroxine (4) Seizure disorder Is this a current diagnosis for this admission?: Yes (5) TIA (transient ischemic attack) Is this a current diagnosis for this admission?: Yes (6) DNR (do not resuscitate) Is this a current diagnosis for this admission?: Yes Plan: Continue DNR (7) C. difficile colitis Is this a current diagnosis for this admission?: Yes Plan: resolved. completed 10 days of meds
[2018-02-24] MEDS: ATORVASTATIN CALCIUM 10 MG TABLET PO SCH (21:14)
[2018-02-24] MEDS: TRAZODONE HCL 50 MG TABLET PO SCH (21:14)
[2018-02-25] MEDS: LEVOTHYROXINE SODIUM 0.1 MG TABLET PO SCH (05:34)
[2018-02-25] MEDS ORDERED: LORAZEPAM INJ 2 MG/1 ML VIAL IV PRN (10:29)
[2018-02-25] MEDS ORDERED: LORAZEPAM 1 MG TABLET SL PRN (15:52)
[2018-02-25] MEDS: ASPIRIN 81 MG TABLET, ENT COATED PO SCH (19:49)
[2018-02-25] MEDS: LEVETIRACETAM ORAL SOLN 500 MG/5 ML UDCUP PO SCH ×2 (19:49→22:05)
[2018-02-25] MEDS: ENOXAPARIN SODIUM INJ 30 MG/0.3 ML DISP.SYRIN SUBCUT SCH (19:49)
[2018-02-25] MEDS: ALLOPURINOL 300 MG TABLET PO SCH (19:50)
[2018-02-25] MEDS: AMLODIPINE BESYLATE 5 MG TABLET PO SCH (19:50)
[2018-02-25] MEDS: TRAZODONE HCL 50 MG TABLET PO SCH (22:00)
[2018-02-25] MEDS: ATORVASTATIN CALCIUM 10 MG TABLET PO SCH (22:00)
[2018-02-26] MEDS: LEVOTHYROXINE SODIUM 0.1 MG TABLET PO SCH (05:47)
[2018-02-26 08:32] VITALS: BP 78/56
--- NOTE | 2018-02-26 08:40 | PDOC TRANSFER SUMMARY ---
General - Admit/Disc Date/PCP Admission Date/Primary Care Provider: 02/09/18 17:38 PIETRO MAYNARD MD Discharge Date: 02/26/18 - Please refer for more details to the previous dictated discharge summary - Discharge Diagnosis (1) Dementia Is this a current diagnosis for this admission?: Yes Summary: Advanced dementia continue current supportive treatment (2) Hypertension Is this a current diagnosis for this admission?: Yes Summary: Continue current medications (3) Hypothyroid Is this a current diagnosis for this admission?: Yes Summary: Continue current medication (4) Seizure disorder Is this a current diagnosis for this admission?: Yes Summary: Stable continue current medication. Please consider reducing the dose of Keppra in about 4 weeks (5) TIA (transient ischemic attack) Is this a current diagnosis for this admission?: Yes (6) DNR (do not resuscitate) Is this a current diagnosis for this admission?: Yes Summary: Continue DNR status. The family is in agreement. Would consider discussing with family about comfort measures because of advanced dementia (7) C. difficile colitis Is this a current diagnosis for this admission?: Yes - Additional Information Resuscitation Status: Do Not Resuscitate Discharge Diet: As Tolerated Discharge Activity: Activity As Tolerated, Slowly Increase Activity Home Medications: Allopurinol [Zyloprim 300 mg Tablet] 300 mg PO DAILY 02/09/18 Amlodipine Besylate [Norvasc 5 mg Tablet] 5 mg PO DAILY 02/09/18 Cetirizine HCl [Allergy] 10 mg PO QHS 02/09/18 Ergocalciferol (Vitamin D2) [Vitamin D2] 50,000 unit PO WE@1000 02/09/18 Lovastatin [Altoprev] 40 mg PO QHS 02/09/18 Trazodone HCl [Desyrel 50 mg Tablet] 50 mg PO QHS 02/09/18 Aspirin [Ecotrin 81 mg EC Tablet] 162 mg PO DAILY tabec 02/13/18 Levetiracetam [Keppra 500 mg Tablet] 1,000 mg PO Q12 tablet 02/13/18 Levothyroxine Sodium [Synthroid 0.1 mg Tablet] 0.1 mg PO Q6AM tablet 02/13/18 Lorazepam [Ativan 1 mg Tablet] 1 mg SL Q4HP PRN tablet 02/26/18 History of Present Illness Admission Date/PCP: 02/09/18 17:38 PIETRO MAYNARD MD Hospital Course Hospital Course: The patient was admitted because of a questionable TIA. He had a witnessed seizure and has been started on Keppra. He did not have any recurrence of weakness seizures. He did well unfortunately he has developed C. difficile colitis for which he has been treated for 10 days with Flagyl which has resolved. The family cannot manage the patient at home and the decision has been made to place patient in a long-term care facility. Because of the insurance issues the patient could not be accepted to the long-term facility and it took over a week to make arrangements for the insurance to authorize his admission. The patient's mental status has been declining. The family is aware of the situation. They want mainly comfort measures. The patient is not eating well. Physical Exam Vital Signs: Temp Pulse Resp BP Pulse Ox 97.3 F 112 H 20 78/56 L 94 02/26/18 07:51 02/26/18 07:51 02/26/18 07:51 02/26/18 07:51 02/26/18 07:51 Intake & Output 02/25/18 02/26/18 02/27/18 06:59 06:59 06:59 Intake Total 70 30 Balance 70 30 Weight 68.8 kg Results Laboratory Results: 02/11/18 04:16 02/11/18 04:16 Impressions: Chest X-Ray 02/09/18 16:19 IMPRESSION: NO ACUTE RADIOGRAPHIC FINDING IN THE CHEST. Head CT 02/09/18 16:19 IMPRESSION: CHRONIC CHANGES OF ATROPHY AND MICROVASCULAR ISCHEMIA. NO ACUTE PROCESS. EVIDENCE OF ACUTE STROKE: NO. Carotid Doppler Study 02/10/18 00:00 IMPRESSION: NO HEMODYNAMICALLY SIGNIFICANT STENOSIS. Qualifiers - * PATIENT BEING DISCHARGED WITH ANY OF THE FOLLOWING DIAGNOSIS: No
[2018-02-26] MEDS: ENOXAPARIN SODIUM INJ 30 MG/0.3 ML DISP.SYRIN SUBCUT SCH (10:22)
[2018-02-26] MEDS: ASPIRIN 81 MG TABLET, ENT COATED PO SCH (10:22)
[2018-02-26] MEDS: LEVETIRACETAM ORAL SOLN 500 MG/5 ML UDCUP PO SCH ×2 (10:22→22:24)
[2018-02-26] MEDS: AMLODIPINE BESYLATE 5 MG TABLET PO SCH (10:22)
[2018-02-26] MEDS: ALLOPURINOL 300 MG TABLET PO SCH (10:22)
[2018-02-26] MEDS: TRAZODONE HCL 50 MG TABLET PO SCH (22:58)
[2018-02-26] MEDS: ATORVASTATIN CALCIUM 10 MG TABLET PO SCH (22:58)
[2018-02-27] MEDS: LEVOTHYROXINE SODIUM 0.1 MG TABLET PO SCH (06:07)
--- NOTE | 2018-02-27 09:16 | PDOC DISCHARGE SUMMARY ---
General - Admit/Disc Date/PCP Admission Date/Primary Care Provider: 02/09/18 17:38 PIETRO MAYNARD MD Discharge Date: 02/27/18 - For more details please see previous discharge summary - Discharge Diagnosis (1) Dementia Is this a current diagnosis for this admission?: Yes Summary: Continue current hospice care and DNR status (2) Hypertension Is this a current diagnosis for this admission?: Yes (3) Hypothyroid Is this a current diagnosis for this admission?: Yes (4) Seizure disorder Is this a current diagnosis for this admission?: Yes (5) TIA (transient ischemic attack) Is this a current diagnosis for this admission?: Yes (6) DNR (do not resuscitate) Is this a current diagnosis for this admission?: Yes Summary: Continue current DNR status. Prognosis remains poor. Continue hospice care (7) C. difficile colitis Is this a current diagnosis for this admission?: Yes (8) Alzheimer's dementia Is this a current diagnosis for this admission?: Yes Summary: End-stage advanced Alzheimer's dementia. We will continue with current hospice care and DNR status - Additional Information Resuscitation Status: Do Not Resuscitate Discharge Diet: As Tolerated Discharge Activity: Activity As Tolerated, Slowly Increase Activity Home Medications: Allopurinol [Zyloprim 300 mg Tablet] 300 mg PO DAILY 02/09/18 Amlodipine Besylate [Norvasc 5 mg Tablet] 5 mg PO DAILY 02/09/18 Cetirizine HCl [Allergy] 10 mg PO QHS 02/09/18 Ergocalciferol (Vitamin D2) [Vitamin D2] 50,000 unit PO WE@1000 02/09/18 Lovastatin [Altoprev] 40 mg PO QHS 02/09/18 Trazodone HCl [Desyrel 50 mg Tablet] 50 mg PO QHS 02/09/18 Aspirin [Ecotrin 81 mg EC Tablet] 162 mg PO DAILY tabec 02/13/18 Levetiracetam [Keppra 500 mg Tablet] 1,000 mg PO Q12 tablet 02/13/18 Levothyroxine Sodium [Synthroid 0.1 mg Tablet] 0.1 mg PO Q6AM tablet 02/13/18 Lorazepam [Ativan 1 mg Tablet] 1 mg SL Q4HP PRN tablet 02/26/18 History of Present Illness History of Present Illness: KEN SHARIF is a 82 year old male Hospital Course Hospital Course: The patient is nonverbal he does not take anything p.o. Physical Exam Vital Signs: Temp Pulse Resp BP Pulse Ox 97.3 F 112 H 20 78/56 L 94 02/26/18 07:51 02/26/18 07:51 02/26/18 07:51 02/26/18 07:51 02/26/18 07:51 Intake & Output 02/26/18 02/27/18 02/28/18 06:59 06:59 06:59 Intake Total 30 20 Balance 30 20 Weight 68.8 kg 68.4 kg Results Laboratory Results: 02/11/18 04:16 02/11/18 04:16 Impressions: Chest X-Ray 02/09/18 16:19 IMPRESSION: NO ACUTE RADIOGRAPHIC FINDING IN THE CHEST. Head CT 02/09/18 16:19 IMPRESSION: CHRONIC CHANGES OF ATROPHY AND MICROVASCULAR ISCHEMIA. NO ACUTE PROCESS. EVIDENCE OF ACUTE STROKE: NO. Carotid Doppler Study 02/10/18 00:00 IMPRESSION: NO HEMODYNAMICALLY SIGNIFICANT STENOSIS. Qualifiers - * PATIENT BEING DISCHARGED WITH ANY OF THE FOLLOWING DIAGNOSIS: No
[2018-02-27] MEDS: ASPIRIN 81 MG TABLET, ENT COATED PO SCH (09:41)
[2018-02-27] MEDS: AMLODIPINE BESYLATE 5 MG TABLET PO SCH (09:41)
[2018-02-27] MEDS: ALLOPURINOL 300 MG TABLET PO SCH (09:41)
[2018-02-27] MEDS: LEVETIRACETAM ORAL SOLN 500 MG/5 ML UDCUP PO SCH (10:12)
== END 2018-02-27 12:45 | disposition hospice, inpatient (51) | DRG 69 ==
LOC: ER 16:15 → INTOOBSV 17:38 → EH 17:38 → OBSVTOIN 17:38 → 3W 21:07 → 4W 02-18 08:51 → 4S 02-18 12:00
PROVIDERS: ADMIT Internal Medicine; ATTEND Internal Medicine
DX: G45.9 Transient cerebral ischemic attack, unspecified (principal); A04.72 Enterocolitis due to Clostridium difficile, not specified as recurrent; E46 Unspecified protein-calorie malnutrition; G30.1 Alzheimer's disease with late onset; F02.80 Dementia in other diseases classified elsewhere, unspecified severity, without behavioral disturbance, psychotic disturbance, mood disturbance, and anxiety; Z66 Do not resuscitate; I10 Essential (primary) hypertension; E03.9 Hypothyroidism, unspecified; G40.909 Epilepsy, unspecified, not intractable, without status epilepticus; R29.810 Facial weakness; E78.00 Pure hypercholesterolemia, unspecified; R62.7 Adult failure to thrive; T73.0XXA Starvation, initial encounter; X58.XXXA Exposure to other specified factors, initial encounter; Z68.22 Body mass index [BMI] 22.0-22.9, adult; Z74.01 Bed confinement status; Z88.8 Allergy status to other drugs, medicaments and biological substances; Z82.49 Family history of ischemic heart disease and other diseases of the circulatory system
CPT/HCPCS: 36415; 70450; 71045; 80048; 80053; 80061; 81001; 82550; 82553; 82962; 84100; 84443; 84484; 85025; 85610; 85730; 87493; 93005; 93010; 93306; 93880; 95819; 99285; G8978-GP; G8979-GP; G8980-GP; G8987-GO; G8988-GO; G8989-GO; J1650; J2060; J3490